=== PATIENT | male | born 1990 | race Hispanic/Latino ===

== ENCOUNTER 2017-08-13 19:00 | Inpatient (IN) | payer MEDICAID ==
[2017-08-13 19:56] LABS: BASO # 0.1 K/uL (0.0-0.2); BASO % 0.8 % (0.0-2.0); EOS # 0.2 K/uL (0.0-0.7); EOS % 1.8 % (0.0-4.0); HEMOGLOBIN 16.9 g/dL (12.0-18.0); LYMPH # 2.6 K/uL (1.0-4.3); LYMPH % 20.8 % (20.0-40.0); MEAN CELL VOLUME 91.9 fl (80.0-94.0); MEAN CORPUSCULAR HEMOGLOBIN 32.3 pg (27.0-31.0); MEAN CORPUSCULAR HGB CONC 35.1 g/dL (33.0-37.0); MONO # 0.8 K/uL (0.0-0.8); MONO % 6.1 % (0.0-10.0); NEUT # 8.9 K/uL (1.8-7.0); NEUT % 70.5 % (50.0-75.0); NRBC % 0.1 % (0.0-0.0); RBC 5.22 Mil/uL (4.40-5.90); RED CELL DISTRIBUTION WIDTH 12.8 % (11.5-14.5); WHITE BLOOD COUNT 12.6 K/uL (4.8-10.8)
[2017-08-13 20:00] LABS: URINE BACTERIA RARE (<OCC); URINE BILIRUBIN NEGATIVE (NEGATIVE); URINE BLOOD NEGATIVE (NEGATIVE); URINE CLARITY CLOUDY (Clear); URINE COLOR YELLOW (YELLOW); URINE GLUCOSE (UA) NEG (Normal); URINE LEUKOCYTE ESTERASE NEG Leu/uL (Negative); URINE PROTEIN NEGATIVE (NEGATIVE); URINE UROBILINOGEN 0.2-1.0 mg/dL (0.2-1.0)
[2017-08-13 20:06] LABS: INR 1.1 (0.9-1.2)
[2017-08-13 20:07] LABS: PARTIAL THROMBOPLASTIN TIME 32.4 Seconds (25.6-37.1)
[2017-08-13 20:10] LABS: ALB/GLOB RATIO 1.4 (1.0-2.1); ALBUMIN 4.2 g/dL (3.5-5.0); ALT/SGPT 44 U/L (21-72); AST/SGOT 26 U/L (17-59); BLOOD UREA NITROGEN 12 mg/dl (9-20); CALCIUM 9.4 mg/dL (8.4-10.2); GFR AFRICAN-AMERICAN > 60; GFR NON-AFRICAN AMERICAN > 60
[2017-08-13 20:24] LABS: BARBITURATES, UR NEGATIVE (NEGATIVE); BENZODIAZEPINES, UR NEGATIVE (NEGATIVE); OPIATES, UR NEGATIVE (NEGATIVE); PHENCYCLIDINE, UR NEGATIVE (NEGATIVE)
[2017-08-13] MEDS ORDERED: Alum-Mag Hydrox-Simethicone Susp (30 mL) PO STA (20:30)
[2017-08-13] MEDS ORDERED: Atrop/Hyos/Scop/PhenoB Elixir PO STA (20:30)
--- NOTE | 2017-08-13 20:48 | ED PDOC ---
HPI: Chest Pain Time Seen by Provider: 08/13/17 19:22 Chief Complaint (Nursing): Chest Pain History Per: Patient History/Exam Limitations: no limitations Onset/Duration Of Symptoms: Days Current Symptoms Are (Timing): Intermittent Episodes Context: Food Severity: Moderate Quality: Sharp, Tightness Associated Symptoms: Nausea. denies: Dyspnea, Diaphoresis, Syncope Exacerbating Factors: None Alleviating Factors: None Additional History Per: Family Additional Complaint(s): CC: Chest pain HPI: 27 y/o man w/ mild intermittent asthma presents to the ED w/ chest pain. Patient reports midsternal chest pain, going on for 1-2 months, no precipitating factors, sharp in nature, non-radiating, intermittent, no alleviated by anything, not worsened by anything, no meds taken. Patient reports associated dysphagia liquids and solids, "heartburn", low appetite, and unintentional weight loss. Patient also reports rash on his torso for the past 2 weeks that started in the middle of his chest and spread throughout the rest of his anterior torso but no rashes seen below abdomen, extremities, back, or face. Patient denies headaches, dizziness, SOB, nausea, vomiting, diarrhea, dysuria, or fever. Patient is visiting from [place] PMD: none PMH: mild intermittent asthma meds: albuterol inhaler allergies: penicillin (anaphylaxis) PSH: none Fam: father [place] age 50, mother [place] age 52, grandmother [place] age 46, grandfather [place] age 52 SOC: smokes 5 cigs/day for 8 years, drinks socially, smoked marijuana 1 week ago but denies using cocaine or other substances ROS; 12 points assessed and negative unless otherwise reported in HPI - Risk Factors PE Risk Factors: Neg: Extremity Immobilization/Fx, Decreased Mobilty /Activity, Recent Major Surgery, Recent Hospitalization, Active Cancer, Previous DVT, Previous PE, CHF, Venous Stasis, Estrogen Usage, Recent Major Trauma TAD Risk Factors: Neg: Hypertension, Connective Tissue Disease, Marfan's Syndrome, Burt- Danlos Syndrome, Aortic Valve Disease, Active , Tumer's Syndrome, First Degree Relative With TAD, Sudden Onset Of Pain, Migration Of Pain, New Neurologic Symptoms Past Medical History Vital Signs: Last Vital Signs Temp 98.8 F 08/13/17 19:12 Pulse 88 08/13/17 22:36 Resp 20 08/13/17 22:36 BP 153/90 H 08/13/17 22:36 Pulse Ox 97 08/13/17 21:04 - Family History Family History: States: [place] - Social History Current smoker - smoking cessation education provided: Yes (5 cigs/day for 8 years) Alcohol: > 2 Drinks/Day Drugs: Cannabis - Allergies Allergies/Adverse Reactions: Allergies Allergy/AdvReac Type Severity Reaction Status Date / Time Penicillins Allergy RASH Verified 08/13/17 19:08 GARCIA Risk Score for UA/NSTEMI - GARCIA Risk Score Age > 64: NO 3 or more CAD Risk Factors: NO Known CAD (Stenosis greater than 50%): NO Aspirin use in past 7 days: NO Severe Angina: NO EKG ST changes greater than 0.5mm: NO Positive Cardiac Marker: NO GARCIA Score: 0 Risk %: 5% Curb-65 Severity Score - CURB-65 Severity Score Confusion: No Bun >19mg/dl (>7mmol/L): No Respiratory Rate greater than/equal to 30: No Systolic BP <90 or Diastolic BP less than/equal 60mmHg: No Age >64: No Curb-65 Score: 0 Percentage 30-day mortality: 0.6% Wells Criteria for PE - Wells Criteria for Pulmonary Embolism Clinical Signs and Symptoms of DVT: No P.E is #1 Diagnosis, or Equally Likely: No Heart Rate >100: No Immobilization at least 3 days;Surgery previous 4 weeks: No Previous, objectively diagnosed PE or DVT: No Hemoptysis: No Malignancy w/treatment within 6 months, or palliative: No Total Score: 0 Review of Systems Constitutional: Positive for: Weight loss. Negative for: Fever Eyes: Negative for: Pain ENT: Negative for: Throat Pain, Throat Swelling Cardiovascular: Positive for: Chest Pain. Negative for: Palpitations, Edema, Light Headedness Respiratory: Negative for: Cough, Shortness of Breath, Hemoptysis, SOB with Exertion, Pleuritic Pain, Wheezing Gastrointestinal: Negative for: Nausea, Vomiting, Abdominal Pain, Diarrhea, Melena, Hematochezia Genitourinary Male: Negative for: Dysuria Skin: Positive for: Rash Neurological: Negative for: Weakness Physical Exam - Reviewed Nursing Documentation Reviewed: Yes Vital Signs Reviewed: Yes - Physical Exam Appears: Positive for: Non-toxic, No Acute Distress Head Exam: Positive for: ATRAUMATIC, NORMAL INSPECTION, NORMOCEPHALIC Skin: Positive for: Normal Color, Warm, Rash (multiple macular erythematic 2-3 cm rashes limited to anterior torso) Eye Exam: Positive for: Normal appearance ENT: Positive for: Normal ENT Inspection Neck: Positive for: Normal, Painless ROM, Supple Cardiovascular/Chest: Positive for: Regular Rate, Rhythm, Chest Non Tender. Negative for: Edema, JVD, Murmur, Bradycardia, Tachycardia Respiratory: Positive for: Normal Breath Sounds. Negative for: Decreased Breath Sounds, Accessory Muscle Use, Crackles, Rales, Rhonchi, Wheezing, Respiratory Distress Pulses-Carotid (L): 2+ Pulses-Carotid (R): 2+ Pulses-Radial (L): 2+ Pulses-Radial (R): 2+ Gastrointestinal/Abdominal: Positive for: Normal Exam, Bowel Sounds, Soft. Negative for: Tenderness, Mass, Distended, Guarding, Rebound Extremity: Positive for: Normal ROM. Negative for: Tenderness, Pedal Edema, Calf Tenderness Neurologic/Psych: Positive for: Alert, Oriented - Laboratory Results Result Diagrams: 08/13/17 19:53 08/13/17 19:53 - ECG O2 Sat by Pulse Oximetry: 97 Medical Decision Making Medical Decision Makin27 y/o man w/ mild intermittent asthma presents to the ED w/ chest pain. Most likely 2/2 GERD vs. r/o ACS vs. pancreatitis - CBC w/ diff: 12.6>16.9/48.0<254 - CMP: 141/3.9, 100/30, 12/0.9, glucose 133, AST 26, ALT 44, alk phos 66 - lipase: 1918 - troponin I: <0.0120 - PT: 12.0 - PTT: 32.4 - INR: 1.1 - UA: WNL - Urine drug screen: positive for cannabinoids - EKG: NSR, no ST elevation/depression, no prolonged QRS, QT, or [place], no inverted or peaked T waves - GI cocktail - re-evaluate - upon further interviewing, patient reports that prior to coming to [place] , he was drinking heavily while in [place] due to passing away of his - acute pancreatitis - IV LR bolus x3 - GI consult - gallbladder U/S: pending - admit to medicine Disposition - Clinical Impression Clinical Impression: Pancreatitis - Patient ED Disposition Is Patient to be Admitted: Yes Discussed With : Veto Barron Counseled Patient/Family Regarding: Studies Performed, Diagnosis - Disposition Disposition Time: 23:19 Condition: FAIR
[2017-08-13] MEDS ORDERED: Alum-Mag Hydrox-Simethicone Susp (30 mL) ONE (20:56)
[2017-08-13] MEDS ORDERED: Lactated Ringer's 1,000 ML IV STA ×3 (22:04→22:29)
[2017-08-13] MEDS ORDERED: Sodium Chloride 0.9% 1,000 ML IV STA ×2 (22:07→22:25)
--- NOTE | 2017-08-13 22:42 | CP.PCM.HP ---
History of Present Illness - History of Present Illness History of Present Illness: CC: chest/abdominal pain HPI: This is a 27 y/o male with asthma and with recent heavy EtOH use who comes to ED with chest/epigastric pain. Pain has been going on for ~1 month, but worsening. Accompanied by n/v yesterday (nb/nb). Pain is described as pressure like, non radiating. Seems to be somewhat worse with eating, but nothing alleviates. Patient also describes that for past few weeks foods have been ' sticking' in his throat, he has had reflux type symptoms, and anorexia with some weight loss. Patient also c/o rash on chest. Patient notes his some weeks ago, and recently has been drinking heavily on/off. Drinks up to a bottle of hard liquor a day followed by beer, but states he has not been drinking as much the last few days. ROS: 14 systems reviewed, negative other than HPI MHx: mild intermittent asthma SHx: none Allergies: PCN Medications: Per med rec Family Hx: CAD/TX in family at father [place] age 50, mother [place] age 52, grandmother [place] age 46, grandfather [place] age 52 Social Hx: Lives alone, smokes <1/2 PPD, recent heavy EtOH consumption, occasional MJ, no other drugs Present on Admission - Present on Admission Any Indicators Present on Admission: No Meds Allergies/Adverse Reactions: Allergies Allergy/AdvReac Type Severity Reaction Status Date / Time Penicillins Allergy RASH Verified 08/13/17 19:08 Physical Exam - Constitutional Appears: No Acute Distress - Head Exam Head Exam: ATRAUMATIC, NORMOCEPHALIC - Eye Exam Eye Exam: EOMI, PERRL - ENT Exam ENT Exam: Mucous Membranes Dry - Neck Exam Neck exam: Positive for: Full Rom - Respiratory Exam Respiratory Exam: Clear to Auscultation Bilateral, NORMAL BREATHING PATTERN - Cardiovascular Exam Cardiovascular Exam: REGULAR RHYTHM, +S1, +S2 Additional comments: rash on chest, macular, red - GI/Abdominal Exam GI & Abdominal Exam: Normal Bowel Sounds, Soft, Tenderness Additional comments: rash on chest - Extremities Exam Extremities exam: Positive for: full ROM, normal inspection - Neurological Exam Neurological exam: Alert, CN II-XII Intact, Oriented x3 - Psychiatric Exam Psychiatric exam: Normal Affect, Normal Mood - Skin Skin Exam: Dry, Warm Results - Vital Signs Recent Vital Signs: Last Vital Signs Temp 98.8 F 08/13/17 19:12 Pulse 88 08/13/17 19:38 Resp 20 08/13/17 19:38 BP 153/90 H 08/13/17 19:38 Pulse Ox 97 08/13/17 21:04 - Labs Result Diagrams: 08/13/17 19:53 08/13/17 19:53 Labs: Laboratory Results - last 24 hr 08/13/17 08/13/17 08/13/17 19:53 19:53 19:53 WBC 12.6 H RBC 5.22 Hgb 16.9 Hct 48.0 MCV 91.9 MCH 32.3 H MCHC 35.1 RDW 12.8 Plt Count 254 MPV 7.0 L Neut % (Auto) 70.5 Lymph % (Auto) 20.8 [place] % (Auto) 6.1 Eos % (Auto) 1.8 Baso % (Auto) 0.8 Neut # (Auto) 8.9 H Lymph # (Auto) 2.6 [place] # (Auto) 0.8 Eos # (Auto) 0.2 Baso # (Auto) 0.1 PT 12.0 INR 1.1 APTT 32.4 Sodium 141 Potassium 3.9 Chloride 100 Carbon Dioxide 30 Anion Gap 15 BUN 12 Creatinine 0.9 Est GFR ( Amer) > 60 Est GFR (Non-Af Amer) > 60 Random Glucose 133 H Calcium 9.4 Total Bilirubin 1.6 H AST 26 ALT 44 Alkaline Phosphatase 66 Troponin I < 0.0120 Total Protein 7.3 Albumin 4.2 Globulin 3.1 Albumin/Globulin Ratio 1.4 Lipase Urine Color Urine Clarity Urine pH Ur Specific [place] Urine Protein Urine Glucose (UA) Urine Ketones Urine Blood Urine Nitrate Urine Bilirubin Urine Urobilinogen Ur Leukocyte Esterase Urine RBC (Auto) Urine Microscopic WBC Urine Bacteria Urine Opiates Screen Urine Methadone Screen Ur Barbiturates Screen Ur Phencyclidine Scrn Ur Amphetamines Screen U Benzodiazepines Scrn U Oth Cocaine Metabols U Cannabinoids Screen 08/13/17 08/13/17 08/13/17 19:53 19:53 21:05 WBC RBC Hgb Hct MCV MCH MCHC RDW Plt Count MPV Neut % (Auto) Lymph % (Auto) [place] % (Auto) Eos % (Auto) Baso % (Auto) Neut # (Auto) Lymph # (Auto) [place] # (Auto) Eos # (Auto) Baso # (Auto) PT INR APTT Sodium Potassium Chloride Carbon Dioxide Anion Gap BUN Creatinine Est GFR ( Amer) Est GFR (Non-Af Amer) Random Glucose Calcium Total Bilirubin AST ALT Alkaline Phosphatase Troponin I Total Protein Albumin Globulin Albumin/Globulin Ratio Lipase 1918 H Urine Color Yellow Urine Clarity Cloudy Urine pH 6.0 Ur Specific [place] 1.028 Urine Protein Negative Urine Glucose (UA) Neg Urine Ketones Negative Urine Blood Negative Urine Nitrate Negative Urine Bilirubin Negative Urine Urobilinogen 0.2-1.0 Ur Leukocyte Esterase Neg Urine RBC (Auto) 3 Urine Microscopic WBC 2 Urine Bacteria Rare Urine Opiates Screen Negative Urine Methadone Screen Negative Ur Barbiturates Screen Negative Ur Phencyclidine Scrn Negative Ur Amphetamines Screen Negative U Benzodiazepines Scrn Negative U Oth Cocaine Metabols Negative U Cannabinoids Screen Positive H - EKG Data EKG Interpreted by: Myself EKG shows normal: Sinus rhythm Rate: Normal Assessment & Plan (1) Pancreatitis Assessment and Plan: 27 y/o male with CP/abd pain and likely pancreatitis; BISAP score appears to be 0. However, some concern given report of dysphagia and weight loss as well-- scarring/spasm due to GERD, stricture, etc. -NPO, IVF -Zofran for nausea IV -Morphine for pain IV per pain scale -Repeat Lipase/CMP/BMP in AM -GI Consult with Jarrett in AM -SCDs for DVT PPx Status: Acute (2) Epigastric pain Status: Acute (3) DVT prophylaxis Status: Acute
[2017-08-13] MEDS ORDERED: Lactated Ringer's 1,000 ML IV SCH ×2 (22:45)
--- NOTE | 2017-08-14 01:00 | CP.PCM.CON ---
History of Present Illness - History of Present Illness History of Present Illness: 27 yo male c/o chest pain and was found to have very elevated lipase level. Patient has been drinking alcohol regularly for approximately one year after his had . He also smokes cigarettes. Has had several ER visits with similar complaints and no cardiac problems were found. Review of Systems - Constitutional Constitutional: absent: Chills - EENT Eyes: absent: Change in Vision Ears: absent: Decreased Hearing Nose/Mouth/Throat: absent: Epistaxis - Cardiovascular Cardiovascular: Chest Pain - Respiratory Respiratory: absent: Dyspnea - Gastrointestinal Gastrointestinal: absent: Abdominal Pain Past Patient History - Past Social History Smoking Status: Heavy Smoker > 10 Cigarettes Daily - MUSCULOSKELETAL/RHEUMATOLOGICAL Hx Falls: No - PSYCHIATRIC Hx Substance Use: Yes (marijuana a week ago) Meds Allergies/Adverse Reactions: Allergies Allergy/AdvReac Type Severity Reaction Status Date / Time Penicillins Allergy RASH Verified 08/13/17 19:08 - Medications Medications: Current Medications Lactated Ringer's (Lactated Ringer's) 1,000 mls @ 100 mls/hr IV .Q10H [facility] Stop: 08/14/17 18:44 Morphine Sulfate (Morphine) 1 mg IVP Q4 PRN PRN Reason: Pain, Mild (1-3) Morphine Sulfate (Morphine) 2 mg IVP Q4 PRN PRN Reason: Pain, moderate (4-7) Ondansetron HCl (Zofran Inj) 4 mg IVP Q6 PRN PRN Reason: Nausea/Vomiting Pantoprazole Sodium (Protonix Ec Tab) 40 mg PO BID LO Physical Exam - Head Exam Head Exam: ATRAUMATIC - Eye Exam Eye Exam: EOMI Pupil Exam: PERRL - Respiratory Exam Respiratory Exam: NORMAL BREATHING PATTERN - Cardiovascular Exam Cardiovascular Exam: REGULAR RHYTHM, +S1, +S2 - GI/Abdominal Exam GI & Abdominal Exam: Normal Bowel Sounds, Soft. absent: Tenderness Results - Vital Signs Recent Vital Signs: Last Vital Signs Temp 97.3 F L 08/13/17 23:50 Pulse 72 08/13/17 23:50 Resp 20 08/13/17 23:50 BP 125/79 08/13/17 23:50 Pulse Ox 96 08/13/17 23:50 - Labs Result Diagrams: 08/13/17 19:53 08/13/17 19:53 Labs: Laboratory Results - last 24 hr 08/13/17 08/13/17 08/13/17 19:53 19:53 19:53 WBC 12.6 H RBC 5.22 Hgb 16.9 Hct 48.0 MCV 91.9 MCH 32.3 H MCHC 35.1 RDW 12.8 Plt Count 254 MPV 7.0 L Neut % (Auto) 70.5 Lymph % (Auto) 20.8 [place] % (Auto) 6.1 Eos % (Auto) 1.8 Baso % (Auto) 0.8 Neut # (Auto) 8.9 H Lymph # (Auto) 2.6 [place] # (Auto) 0.8 Eos # (Auto) 0.2 Baso # (Auto) 0.1 PT 12.0 INR 1.1 APTT 32.4 Sodium 141 Potassium 3.9 Chloride 100 Carbon Dioxide 30 Anion Gap 15 BUN 12 Creatinine 0.9 Est GFR ( Amer) > 60 Est GFR (Non-Af Amer) > 60 Random Glucose 133 H Calcium 9.4 Total Bilirubin 1.6 H AST 26 ALT 44 Alkaline Phosphatase 66 Troponin I < 0.0120 Total Protein 7.3 Albumin 4.2 Globulin 3.1 Albumin/Globulin Ratio 1.4 Lipase Urine Color Urine Clarity Urine pH Ur Specific [place] Urine Protein Urine Glucose (UA) Urine Ketones Urine Blood Urine Nitrate Urine Bilirubin Urine Urobilinogen Ur Leukocyte Esterase Urine RBC (Auto) Urine Microscopic WBC Urine Bacteria Urine Opiates Screen Urine Methadone Screen Ur Barbiturates Screen Ur Phencyclidine Scrn Ur Amphetamines Screen U Benzodiazepines Scrn U Oth Cocaine Metabols U Cannabinoids Screen 08/13/17 08/13/17 08/13/17 19:53 19:53 21:05 WBC RBC Hgb Hct MCV MCH MCHC RDW Plt Count MPV Neut % (Auto) Lymph % (Auto) [place] % (Auto) Eos % (Auto) Baso % (Auto) Neut # (Auto) Lymph # (Auto) [place] # (Auto) Eos # (Auto) Baso # (Auto) PT INR APTT Sodium Potassium Chloride Carbon Dioxide Anion Gap BUN Creatinine Est GFR ( Amer) Est GFR (Non-Af Amer) Random Glucose Calcium Total Bilirubin AST ALT Alkaline Phosphatase Troponin I Total Protein Albumin Globulin Albumin/Globulin Ratio Lipase 1918 H Urine Color Yellow Urine Clarity Cloudy Urine pH 6.0 Ur Specific [place] 1.028 Urine Protein Negative Urine Glucose (UA) Neg Urine Ketones Negative Urine Blood Negative Urine Nitrate Negative Urine Bilirubin Negative Urine Urobilinogen 0.2-1.0 Ur Leukocyte Esterase Neg Urine RBC (Auto) 3 Urine Microscopic WBC 2 Urine Bacteria Rare Urine Opiates Screen Negative Urine Methadone Screen Negative Ur Barbiturates Screen Negative Ur Phencyclidine Scrn Negative Ur Amphetamines Screen Negative U Benzodiazepines Scrn Negative U Oth Cocaine Metabols Negative U Cannabinoids Screen Positive H Assessment & Plan (1) Elevated lipase Assessment and Plan: Markedly elevated lipase. Sono of abdomen still pending. Since patient has no abdominal pain will give liquid diet and may advance as tolerated. Upper endoscopy Tuesday to evaluate chest pain and possible esophagitis or esophageal lesion. Status: Acute
[2017-08-14 06:54] LABS: HEMOGLOBIN 15.2 g/dL (12.0-18.0); MEAN CELL VOLUME 91.9 fl (80.0-94.0); MEAN CORPUSCULAR HEMOGLOBIN 32.4 pg (27.0-31.0); MEAN CORPUSCULAR HGB CONC 35.2 g/dL (33.0-37.0); RBC 4.7 Mil/uL (4.40-5.90); RED CELL DISTRIBUTION WIDTH 12.7 % (11.5-14.5); WHITE BLOOD COUNT 12.2 K/uL (4.8-10.8)
[2017-08-14 07:12] LABS: ALB/GLOB RATIO 1.4 (1.0-2.1); ALBUMIN 3.7 g/dL (3.5-5.0); ALT/SGPT 35 U/L (21-72); AST/SGOT 23 U/L (17-59); BLOOD UREA NITROGEN 10 mg/dl (9-20); CALCIUM 8.7 mg/dL (8.4-10.2); GFR AFRICAN-AMERICAN > 60; GFR NON-AFRICAN AMERICAN > 60; LIPASE 842 U/L (23-300)
[2017-08-14] MEDS: Pantoprazole 40 mg EC Tab PO SCH ×2 (08:16→15:59)
--- NOTE | 2017-08-14 09:26 | CP.PCM.PN ---
Subjective - Date & Time of Evaluation Date of Evaluation: 08/14/17 Time of Evaluation: 09:26 - Subjective Subjective: feeling improved +bm tolerated liquids well this am for EGD in am hd stable nad Objective - Vital Signs/Intake and Output Vital Signs (last 24 hours): Temp Pulse Resp BP Pulse Ox 97.6 F 71 19 113/64 97 08/14/17 07:38 08/14/17 07:38 08/14/17 07:38 08/14/17 07:38 08/14/17 07:38 Vitals Reviewed GEN: WDWN, alert, cooperative HEENT: NCAT, PERRL, EOMI HEART: RRR, +S1S2, NO MRG LUNG: CTAB, NO WRR ABD: soft, NT, ND, No HSM, No masses EXT: normal pedal pulses, normal capillary refill NEURO: awake, alert, no focal deficits SKIN: warm, dry PSYCH: normal mood, normal affect - Medications Medications: Current Medications Morphine Sulfate (Morphine) 1 mg IVP Q4 PRN PRN Reason: Pain, Mild (1-3) Morphine Sulfate (Morphine) 2 mg IVP Q4 PRN PRN Reason: Pain, moderate (4-7) Ondansetron HCl (Zofran Inj) 4 mg IVP Q6 PRN PRN Reason: Nausea/Vomiting Pantoprazole Sodium (Protonix Ec Tab) 40 mg PO BID LO Last Admin: 08/14/17 08:16 Dose: 40 mg - Labs Labs: 08/14/17 05:25 08/14/17 05:25 PT 12.0 Seconds (9.8-13.1) 08/13/17 19:53 INR 1.1 (0.9-1.2) 08/13/17 19:53 APTT 32.4 Seconds (25.6-37.1) 08/13/17 19:53 Assessment and Plan - Assessment and Plan (Free Text) Plan: 27 y/o male with asthma and with recent heavy EtOH use who comes to ED with chest/epigastric pain. Pain has been going on for ~1 month, but worsening. Accompanied by n/v yesterday (nb/nb). Pain is described as pressure like, non radiating. Seems to be somewhat worse with eating, but nothing alleviates. Patient also describes that for past few weeks foods have been 'sticking' in his throat, he has had reflux type symptoms, and anorexia with some weight loss. Patient also c/o rash on chest. Patient notes his some weeks ago, and recently has been drinking heavily on/off. Drinks up to a bottle of hard liquor a day followed by beer, but states he has not been drinking as much the last few days. Pancreatitis -Advanced to liquid diet without issue this morning -Zofran for nausea IV -Morphine for pain IV per pain scale -Repeat Labs in AM -GI Consult with Jarrett appreciated Dysphagia -Consult with Dr. Farias -For EGD tomorrow AM EtOH use -counseled on cessation -recommended grief counseling -SCDs for DVT PPx
--- NOTE | 2017-08-14 11:00 | US ---
HISTORY: Pancreatitis COMPARISON: None. TECHNIQUE: Sonographic evaluation of the right upper quadrant of the abdomen. FINDINGS: LIVER: Measures 16.2 cm in length. Normal echogenicity of the liver parenchyma. No mass. No intrahepatic bile duct dilatation. GALLBLADDER: Unremarkable. No gallstones. No sonographic Lynne sign COMMON BILE DUCT: Measures 3.7 mm. No stones. No dilatation. PANCREAS: Pancreas is not seen due to body habitus and bowel gas. RIGHT KIDNEY: Measures 10.6 x 5.3 x 4.1 cm in length. Normal echogenicity. No calculus, mass, or hydronephrosis. AORTA: No aneurysmal dilatation. IVC: Unremarkable. OTHER FINDINGS: None . IMPRESSION: Limited evaluation of the pancreas due to body habitus and bowel gas. No evidence of cholelithiasis. Consider followup CT scan if further evaluation is required Preliminary report provided by overnight radiology service
--- NOTE | 2017-08-14 12:43 | CARD ---
APPROVED REPORT EKG Measurement Heart [id number] <Conclusion> Normal sinus rhythm with sinus arrhythmia Normal ECG
--- NOTE | 2017-08-14 19:20 | CP.PCM.PN ---
Subjective - Date & Time of Evaluation Date of Evaluation: 08/14/17 Time of Evaluation: 19:17 - Subjective Subjective: C/o substernal painthough improved since yesterday Objective - Vital Signs/Intake and Output Vital Signs (last 24 hours): Temp Pulse Resp BP Pulse Ox 97.5 F L 60 20 113/71 97 08/14/17 16:57 08/14/17 16:57 08/14/17 16:57 08/14/17 16:57 08/14/17 16:57 Intake and Output: 08/14/17 08/15/17 18:59 06:59 Intake Total 1200 Balance 1200 - Medications Medications: Current Medications Morphine Sulfate (Morphine) 1 mg IVP Q4 PRN PRN Reason: Pain, Mild (1-3) Morphine Sulfate (Morphine) 2 mg IVP Q4 PRN PRN Reason: Pain, moderate (4-7) Ondansetron HCl (Zofran Inj) 4 mg IVP Q6 PRN PRN Reason: Nausea/Vomiting Pantoprazole Sodium (Protonix Ec Tab) 40 mg PO BID LO Last Admin: 08/14/17 15:59 Dose: 40 mg - Labs Labs: 08/14/17 05:25 08/14/17 05:25 PT 12.0 Seconds (9.8-13.1) 08/13/17 19:53 INR 1.1 (0.9-1.2) 08/13/17 19:53 APTT 32.4 Seconds (25.6-37.1) 08/13/17 19:53 - Head Exam Head Exam: ATRAUMATIC - Eye Exam Eye Exam: Normal appearance, PERRL Pupil Exam: NORMAL ACCOMODATION - ENT Exam ENT Exam: Mucous Membranes Moist - Neck Exam Neck Exam: Full ROM - Respiratory Exam Respiratory Exam: Clear to Ausculation Bilateral - Cardiovascular Exam Cardiovascular Exam: REGULAR RHYTHM, +S1, +S2 - GI/Abdominal Exam GI & Abdominal Exam: Soft. absent: Tenderness Assessment and Plan (1) Elevated lipase Assessment & Plan: Lipase half the value of yesterday. Abdominal sono negative though pancreas not well seen. Diet advanced to bland soft food. Upper endoscopy tomorrow to evaluate esophagus. Status: Acute
[2017-08-15 07:01] LABS: ALB/GLOB RATIO 1.4 (1.0-2.1); ALBUMIN 3.8 g/dL (3.5-5.0); ALT/SGPT 41 U/L (21-72); AST/SGOT 25 U/L (17-59); BLOOD UREA NITROGEN 9 mg/dl (9-20); CALCIUM 9.1 mg/dL (8.4-10.2); GFR AFRICAN-AMERICAN > 60; GFR NON-AFRICAN AMERICAN > 60
[2017-08-15 07:46] LABS: BASO % 0.4 % (0.0-2.0); EOS # 0.2 K/uL (0.0-0.7); EOS % 1.7 % (0.0-4.0); HEMOGLOBIN 15.7 g/dL (12.0-18.0); LYMPH # 3.2 K/uL (1.0-4.3); LYMPH % 26.9 % (20.0-40.0); MEAN CELL VOLUME 90.9 fl (80.0-94.0); MEAN CORPUSCULAR HEMOGLOBIN 32.1 pg (27.0-31.0); MEAN CORPUSCULAR HGB CONC 35.3 g/dL (33.0-37.0); MEAN PLATELET VOLUME 7.4 fl (7.2-11.7); MONO # 0.9 K/uL (0.0-0.8); MONO % 7.6 % (0.0-10.0); NEUT # 7.6 K/uL (1.8-7.0); NEUT % 63.4 % (50.0-75.0); NRBC % 0.3 % (0.0-0.0); RBC 4.88 Mil/uL (4.40-5.90); RED CELL DISTRIBUTION WIDTH 12.9 % (11.5-14.5)
[2017-08-15] MEDS: Pantoprazole 40 mg EC Tab PO SCH (08:54)
[2017-08-15] MEDS ORDERED: Lactated Ringer's 500 ML IV ONE (11:40)
[2017-08-15] MEDS ORDERED: Propofol 10 mg/ml Inj (20 ML) ONE (12:24)
[2017-08-15] MEDS ORDERED: Midazolam 2 MG/2 ML VIAL ONE (12:24)
[2017-08-15 12:41] VITALS: RESP 17; TEMP 97.2
--- NOTE | 2017-08-15 12:56 | CP.PCM.DIS ---
Provider - Provider Date of Admission: 08/13/17 22:05 Attending physician: Melchor Guerrero MD Primary care physician: none Consults: gastroenterology consult Time Spent in preparation of Discharge (in minutes): 15 Hospital Course - Lab Results Lab Results: Most Recent Lab Values WBC 12.0 K/uL (4.8-10.8) H 08/15/17 06:15 RBC 4.88 Mil/uL (4.40-5.90) 08/15/17 06:15 Hgb 15.7 g/dL (12.0-18.0) 08/15/17 06:15 Hct 44.3 % (35.0-51.0) 08/15/17 06:15 MCV 90.9 fl (80.0-94.0) 08/15/17 06:15 MCH 32.1 pg (27.0-31.0) H 08/15/17 06:15 MCHC 35.3 g/dL (33.0-37.0) 08/15/17 06:15 RDW 12.9 % (11.5-14.5) 08/15/17 06:15 Plt Count 236 K/uL (130-400) 08/15/17 06:15 MPV 7.4 fl (7.2-11.7) 08/15/17 06:15 Neut % (Auto) 63.4 % (50.0-75.0) 08/15/17 06:15 Lymph % (Auto) 26.9 % (20.0-40.0) 08/15/17 06:15 [place] % (Auto) 7.6 % (0.0-10.0) 08/15/17 06:15 Eos % (Auto) 1.7 % (0.0-4.0) 08/15/17 06:15 Baso % (Auto) 0.4 % (0.0-2.0) 08/15/17 06:15 Neut # (Auto) 7.6 K/uL (1.8-7.0) H 08/15/17 06:15 Lymph # (Auto) 3.2 K/uL (1.0-4.3) 08/15/17 06:15 [place] # (Auto) 0.9 K/uL (0.0-0.8) H 08/15/17 06:15 Eos # (Auto) 0.2 K/uL (0.0-0.7) 08/15/17 06:15 Baso # (Auto) 0.0 K/uL (0.0-0.2) 08/15/17 06:15 PT 12.0 Seconds (9.8-13.1) 08/13/17 19:53 INR 1.1 (0.9-1.2) 08/13/17 19:53 APTT 32.4 Seconds (25.6-37.1) 08/13/17 19:53 Sodium 144 mmol/l (132-148) 08/15/17 06:15 Potassium 4.3 MMOL/L (3.6-5.0) 08/15/17 06:15 Chloride 100 mmol/L (98-107) 08/15/17 06:15 Carbon Dioxide 32 mmol/L (22-30) H 08/15/17 06:15 Anion Gap 16 (10-20) 08/15/17 06:15 BUN 9 mg/dl (9-20) 08/15/17 06:15 Creatinine 1.0 mg/dl (0.8-1.5) 08/15/17 06:15 Est GFR ( Amer) > 60 08/15/17 06:15 Est GFR (Non-Af Amer) > 60 08/15/17 06:15 Random Glucose 86 mg/dL (75-110) 08/15/17 06:15 Calcium 9.1 mg/dL (8.4-10.2) 08/15/17 06:15 Total Bilirubin 1.6 mg/dl (0.2-1.3) H 08/15/17 06:15 AST 25 U/L (17-59) 08/15/17 06:15 ALT 41 U/L (21-72) 08/15/17 06:15 Alkaline Phosphatase 60 U/L (38-126) 08/15/17 06:15 Troponin I < 0.0120 ng/mL (0.00-0.120) 08/13/17 19:53 Total Protein 6.6 G/DL (6.3-8.2) 08/15/17 06:15 Albumin 3.8 g/dL (3.5-5.0) 08/15/17 06:15 Globulin 2.8 gm/dL (2.2-3.9) 08/15/17 06:15 Albumin/Globulin Ratio 1.4 (1.0-2.1) 08/15/17 06:15 Lipase 842 U/L (23-300) H 08/14/17 05:25 Urine Color Yellow (YELLOW) 08/13/17 19:53 Urine Clarity Cloudy (Clear) 08/13/17 19:53 Urine pH 6.0 (5.0-8.0) 08/13/17 19:53 Ur Specific Flanagan 1.028 (1.003-1.030) 08/13/17 19:53 Urine Protein Negative mg/dL (NEGATIVE) 08/13/17 19:53 Urine Glucose (UA) Neg mg/dL (Normal) 08/13/17 19:53 Urine Ketones Negative mg/dL (NEGATIVE) 08/13/17 19:53 Urine Blood Negative (NEGATIVE) 08/13/17 19:53 Urine Nitrate Negative (NEGATIVE) 08/13/17 19:53 Urine Bilirubin Negative (NEGATIVE) 08/13/17 19:53 Urine Urobilinogen 0.2-1.0 mg/dL (0.2-1.0) 08/13/17 19:53 Ur Leukocyte Esterase Neg Linette/uL (Negative) 08/13/17 19:53 Urine RBC (Auto) 3 /hpf (0-3) 08/13/17 19:53 Urine Microscopic WBC 2 /hpf (0-5) 08/13/17 19:53 Urine Bacteria Rare (<OCC) 08/13/17 19:53 Urine Opiates Screen Negative (NEGATIVE) 08/13/17 19:53 Urine Methadone Screen Negative (NEGATIVE) 08/13/17 19:53 Ur Barbiturates Screen Negative (NEGATIVE) 08/13/17 19:53 Ur Phencyclidine Scrn Negative (NEGATIVE) 08/13/17 19:53 Ur Amphetamines Screen Negative (NEGATIVE) 08/13/17 19:53 U Benzodiazepines Scrn Negative (NEGATIVE) 08/13/17 19:53 U Oth Cocaine Metabols Negative (NEGATIVE) 08/13/17 19:53 U Cannabinoids Screen Positive (NEGATIVE) H 08/13/17 19:53 - Hospital Course Hospital Course: 27 y/o male with PMH asthma and with recent heavy EtOH use came to ED with chest/epigastric pain. Pain has been going on for ~1 month, but worsening lately , accompanied by n/v yesterday (nb/nb). Pain is described as pressure like, non radiating. Seems to be somewhat worse with eating, but nothing alleviates. Patient also describes that for past few weeks foods have been ' sticking' in his throat, he has had reflux type symptoms, and anorexia with some weight loss. Patient also c/o rash on chest. Patient notes his some weeks ago, and recently has been drinking heavily on/off. Drinks up to a bottle of hard liquor a day followed by beer, but states he has not been drinking as much the last few days. Abdominal US showed no acute pathology Lipase was elevated to 1918 . He was admitted to med/surg with diagnosis of acute pancreatitis and dysphagia. Initially kept NPO , started on IVF and protonix 40 mg IV BID. GI was consulted .Patient clinically improved and lipase trended down to 847 , abdominal pain resolved . He underwent EGD that showed normal stomach and duodenum , mucosal nodules on esophagus that were biopsied . Post EGD tolerated soft diet well . Cleared by GI for discharge. Will d/cv patient on Protonix PO BID and follow up with Dr. Farias for EGD biopsy results. Counselled patient on ETOH abuse he is hemodynamically stable, afebrile, pain free, passing flatus, tolerating PO intake with no withdrawal symptoms. 1.Acute Pancreatitis most likely ETOH induced improved , lipase trended down from 1918---847, pain free , tolerating diet counselled on ETOH abuse no signs of withdrawals 2.Dysphagia unclear etiology probably secondary to esophagitis and gastritis Started on Protonix PO and will be discharged on PO BID as well GI consulted and underwent EGD that showed mucosal nodules in esophagus follow up with Dr. Farias in 2 weeks for biopsy results 3.EtOH use counseled on cessation recommended grief counseling denies any suicidal thoughts or ideation , denies any hallucinations no signs of withdrawal 4. Leukocystosis WBC 12 K most likely reactive 5. Cannabis use Discharge Exam - Head Exam Head Exam: ATRAUMATIC, NORMOCEPHALIC - Eye Exam Eye Exam: EOMI, Normal appearance, PERRL Pupil Exam: NORMAL ACCOMODATION - ENT Exam ENT Exam: Mucous Membranes Moist, Normal Exam - Neck Exam Neck exam: Full Rom, Normal Inspection - Respiratory Exam Respiratory Exam: Clear to PA & Lateral, NORMAL BREATHING PATTERN. absent: Rales, Rhonchi, Wheezes - Cardiovascular Exam Cardiovascular Exam: REGULAR RHYTHM, RRR, +S1, +S2. absent: JVD - GI/Abdominal Exam GI & Abdominal Exam: Normal Bowel Sounds, Soft. absent: Distended, Guarding, Rebound, Tenderness - Rectal Exam Rectal Exam: Deferred - Extremities Exam Extremities exam: normal capillary refill, normal inspection, pedal pulses present - Back Exam Back exam: NORMAL INSPECTION - Neurological Exam Neurological exam: Alert, CN II-XII Intact, Oriented x3, Reflexes Normal - Skin Skin Exam: Dry, Warm Discharge Plan - Discharge Medications Prescriptions: Pantoprazole Sodium [Protonix] 40 mg PO BID #60 tablet.dr - Follow Up Plan Condition: STABLE Disposition: HOME/ ROUTINE Patient education suggested?: Yes Instructions: Pancreatitis (DC), Alcohol Abuse and Alcoholism (DC) Referrals: Bob Farias MD [Staff Provider] -
[2017-08-15 12:58] VITALS: BP 112/62; PULSE 70; O2SAT 97
--- NOTE | 2017-08-16 08:32 | RAD ---
HISTORY: Acute pancreatitis COMPARISON: No prior. FINDINGS: LUNGS: No active pulmonary disease. PLEURA: No significant pleural effusion identified, no pneumothorax apparent. CARDIOVASCULAR: Normal. OSSEOUS STRUCTURES: No significant abnormalities. VISUALIZED UPPER ABDOMEN: Normal. OTHER FINDINGS: None. IMPRESSION: No active disease.
== END 2017-08-15 15:21 | disposition home or self-care (01) | DRG 440 ==
LOC: H.ER 19:00 → H.ERHOLD 22:05 → H.MEDSURG1 23:30
PROVIDERS: ADMIT Internal Medicine; ATTEND Internal Medicine
PROC: 0DB48ZX Excision of Esophagogastric Junction, Via Natural or Artificial Opening Endoscopic, Diagnostic (ICD-10-PCS; principal; 2017-08-15 14:45)
DX: K85.20 Alcohol induced acute pancreatitis without necrosis or infection (principal); R13.10 Dysphagia, unspecified; Z82.49 Family history of ischemic heart disease and other diseases of the circulatory system; R63.0 Anorexia; R21 Rash and other nonspecific skin eruption; R63.4 Abnormal weight loss; R74.8 Abnormal levels of other serum enzymes; F10.10 Alcohol abuse, uncomplicated; F12.90 Cannabis use, unspecified, uncomplicated; F17.210 Nicotine dependence, cigarettes, uncomplicated; J45.20 Mild intermittent asthma, uncomplicated; K21.0 Gastro-esophageal reflux disease with esophagitis; K29.70 Gastritis, unspecified, without bleeding

== ENCOUNTER 2017-08-20 09:45 | Emergency (ER) | payer SELFPAY ==
[2017-08-20 10:00] VITALS: BP 129/77; PULSE 102; RESP 20; TEMP 97.8; O2SAT 95
[2017-08-20] MEDS ORDERED: Alum-Mag Hydrox-Simethicone Susp (30 mL) PO STA (10:32)
[2017-08-20] MEDS ORDERED: Sodium Chloride 0.9% 1,000 ML IV STA (10:35)
--- NOTE | 2017-08-20 10:35 | ED PDOC ---
HPI: Chest Pain Time Seen by Provider: 08/20/17 10:32 Chief Complaint (Nursing): Chest Pain Chief Complaint (Provider): cp History Per: Patient (27 y/o male h/o alcohol abuse h/o pancreatitis with daily etoh intake here for chest pain mid sternal ongoing described as tightness. Notes sore throat daily in morning. Denies any cough/fevers/chills/vomiting. Has been admitted last week for evaluation of chest pain and told he had pancreatitis. Has f/u with Dr. man for biopsy results wnl. Patient concerned about chest pain. Family h/o [place] mother age 53.) Past Medical History Reviewed: Historical Data, Nursing Documentation, Vital Signs Vital Signs: Last Vital Signs Temp 97.8 F 08/20/17 09:58 Pulse 102 H 08/20/17 09:58 Resp 20 08/20/17 09:58 BP 129/77 08/20/17 09:58 Pulse Ox 95 08/20/17 10:35 - Medical History PMH: Asthma Denies: Chronic Kidney Disease - Family History Family History: States: [place] - Immunization History Hx Tetanus Toxoid Vaccination: No Hx Influenza Vaccination: No Hx Pneumococcal Vaccination: No - Home Medications Home Medications: Ambulatory Orders Medication Instructions Recorded Pantoprazole Sodium [Protonix] 40 mg PO BID #60 tablet. 08/15/17 Ranitidine HCl [Zantac] 150 mg PO BID #14 tablet 08/20/17 - Allergies Allergies/Adverse Reactions: Allergies Allergy/AdvReac Type Severity Reaction Status Date / Time Penicillins Allergy RASH Verified 08/13/17 19:08 Review of Systems ROS Statement: Except As Marked, All Systems Reviewed And Found Negative Physical Exam - Reviewed Nursing Documentation Reviewed: Yes Vital Signs Reviewed: Yes - Physical Exam Appears: Positive for: Well, Non-toxic, No Acute Distress Head Exam: Positive for: ATRAUMATIC, NORMAL INSPECTION, NORMOCEPHALIC Skin: Positive for: Normal Color, Warm, DRY Eye Exam: Positive for: EOMI, Normal appearance, PERRL ENT: Positive for: Normal ENT Inspection Neck: Positive for: Normal, Painless ROM Cardiovascular/Chest: Positive for: Regular Rate, Rhythm Respiratory: Positive for: CNT, Normal Breath Sounds Gastrointestinal/Abdominal: Positive for: Normal Exam, Bowel Sounds, Soft Back: Positive for: Normal Inspection Extremity: Positive for: Normal ROM Neurologic/Psych: Positive for: Alert, Oriented - Laboratory Results Result Diagrams: 08/20/17 10:38 08/20/17 10:38 - ECG O2 Sat by Pulse Oximetry: 95 - Progress ED Course And Treament: EKG: Sinus tachycardia 106bpm; no ectopy; no acute changes noted Patient refused maalox. cxr: nad Patient states he is unable to afford protonix. protonix 40 mg x 1 dose in ED Disposition - Clinical Impression Clinical Impression: Chest pain, Esophagitis - Patient ED Disposition Is Patient to be Admitted: No - Disposition Referrals: Bob Man MD [Staff Provider] - Disposition: Routine/Home Disposition Time: 12:37 Condition: FAIR Prescriptions: Ranitidine HCl [Zantac] 150 mg PO BID #14 tablet Instructions: Chest Pain, Ulcer and Gastritis Diet, Acid Reflux ( Gastroesophageal Reflux Disease) in Adults Forms: [facility] (Maori)
[2017-08-20 11:03] LABS: BASO % 0.3 % (0.0-2.0); EOS # 0.1 K/uL (0.0-0.7); HEMOGLOBIN 16.3 g/dL (12.0-18.0); LYMPH # 3.6 K/uL (1.0-4.3); LYMPH % 26.3 % (20.0-40.0); MEAN CELL VOLUME 90.8 fl (80.0-94.0); MEAN CORPUSCULAR HEMOGLOBIN 31.9 pg (27.0-31.0); MEAN CORPUSCULAR HGB CONC 35.1 g/dL (33.0-37.0); MEAN PLATELET VOLUME 7.2 fl (7.2-11.7); MONO # 1.2 K/uL (0.0-0.8); MONO % 8.6 % (0.0-10.0); NEUT # 8.8 K/uL (1.8-7.0); NEUT % 63.8 % (50.0-75.0); NRBC % 0.1 % (0.0-0.0); RBC 5.1 Mil/uL (4.40-5.90); RED CELL DISTRIBUTION WIDTH 12.7 % (11.5-14.5); WHITE BLOOD COUNT 13.9 K/uL (4.8-10.8)
[2017-08-20 11:12] LABS: ALB/GLOB RATIO 1.6 (1.0-2.1); ALBUMIN 4.4 g/dL (3.5-5.0); ALT/SGPT 45 U/L (21-72); AST/SGOT 29 U/L (17-59); BLOOD UREA NITROGEN 11 mg/dl (9-20); GFR AFRICAN-AMERICAN > 60; GFR NON-AFRICAN AMERICAN > 60; LIPASE 363 U/L (23-300)
--- NOTE | 2017-08-20 11:18 | RAD ---
HISTORY: cp COMPARISON: Chest radiograph dated 08/14/2017 TECHNIQUE: Chest PA and lateral FINDINGS: LUNGS: No active pulmonary disease. PLEURA: No significant pleural effusion identified. No pneumothorax apparent. CARDIOVASCULAR: Normal. OSSEOUS STRUCTURES: No significant abnormalities. VISUALIZED UPPER ABDOMEN: Normal. OTHER FINDINGS: None. IMPRESSION: No active disease.
[2017-08-20] MEDS ORDERED: Pantoprazole 40 mg EC Tab PO STA (12:35)
[2017-08-20] MEDS ORDERED: Pantoprazole 40 mg EC Tab PO ONE (12:41)
--- NOTE | 2017-08-21 00:13 | CARD ---
APPROVED REPORT EKG Measurement Heart [id number] <Conclusion> Sinus tachycardia Nonspecific intraventricular conduction delay Borderline ECG
== END 2017-08-20 12:48 | disposition home or self-care (01) ==
LOC: H.ER 09:45
DX: R07.89 Other chest pain (principal); K20.9 Esophagitis, unspecified; Z88.0 Allergy status to penicillin

== ENCOUNTER 2017-10-19 04:20 | Emergency (ER) | payer MEDICAID ==
[2017-10-19 04:44] VITALS: BP 124/77; PULSE 86; RESP 16; TEMP 98.6; O2SAT 100
--- NOTE | 2017-10-19 04:56 | ED PDOC ---
HPI: Chest Pain Time Seen by Provider: 10/19/17 04:38 Chief Complaint (Nursing): Chest Pain Chief Complaint (Provider): Chest pain History Per: Patient History/Exam Limitations: no limitations Current Symptoms Are (Timing): Still Present Additional History Per: Patient Additional Complaint(s): 27yo male, presents to ED for evaluation of chest pain, abdominal pain and a diffuse rash to his body. Patient was recently diagnosed with pancreatitis in July and he has been following up with the [email or web address] He denies any associated fever, chills, shortness of breath, weakness. He has no other medical complaints. Past Medical History Reviewed: Historical Data, Nursing Documentation, Vital Signs Vital Signs: Last Vital Signs Temp 98.6 F 10/19/17 04:41 Pulse 86 10/19/17 04:41 Resp 16 10/19/17 04:41 BP 124/77 10/19/17 04:41 Pulse Ox 100 10/20/17 06:28 - Medical History PMH: Asthma, Pancreatitis Denies: Chronic Kidney Disease - Surgical History Surgical History: No Surg Hx - Family History Family History: States: [place] - Immunization History Hx Tetanus Toxoid Vaccination: No Hx Influenza Vaccination: No Hx Pneumococcal Vaccination: No - Home Medications Home Medications: Ambulatory Orders Medication Instructions Recorded Pantoprazole Sodium [Protonix] 40 mg PO BID #60 tablet. 08/15/17 Ranitidine HCl [Zantac] 150 mg PO BID #14 tablet 08/20/17 - Allergies Allergies/Adverse Reactions: Allergies Allergy/AdvReac Type Severity Reaction Status Date / Time Penicillins Allergy RASH Verified 08/13/17 19:08 Review of Systems ROS Statement: Except As Marked, All Systems Reviewed And Found Negative Constitutional: Negative for: Fever, Chills Cardiovascular: Positive for: Chest Pain Respiratory: Negative for: Shortness of Breath Gastrointestinal: Negative for: Abdominal Pain Skin: Positive for: Rash Neurological: Negative for: Weakness Physical Exam - Reviewed Nursing Documentation Reviewed: Yes Vital Signs Reviewed: Yes - Physical Exam Appears: Positive for: Non-toxic, No Acute Distress Head Exam: Positive for: ATRAUMATIC Skin: Positive for: Warm, Dry, Rash (multiple erythematous pruritic plaques noted to chest and torso) Eye Exam: Positive for: Normal appearance Neck: Positive for: Normal, Supple Cardiovascular/Chest: Positive for: Regular Rate, Rhythm Respiratory: Positive for: Normal Breath Sounds. Negative for: Wheezing, Respiratory Distress Gastrointestinal/Abdominal: Positive for: Normal Exam, Soft. Negative for: Tenderness, Mass, Guarding, Rebound Extremity: Positive for: Normal ROM. Negative for: Deformity Neurologic/Psych: Positive for: Alert, Oriented. Negative for: Motor/Sensory Deficits - ECG O2 Sat by Pulse Oximetry: 100 (RA) Pulse Ox Interpretation: Normal Medical Decision Making Medical Decision Making: impression: 27yo male with chest pain Plan: -- Dr. Cates, who knows patient well from the [facility], states patient has been diagnosed with psoriasis. He will evaluate patient in ER. Progress: 510 Patient seen and evaluated by Dr. Cates who is his PCP; patient stable to follow up at the [facility] [[email or web address] He will also schedule a harbor pilot and GI appointment for follow up for the patient. Scribe Attestation: Documented by Audra Murillo, acting as a scribe for Veto Barron MD Provider Attestation: All medical record entries made by the Scribe were at my direction and personally dictated by me. I have reviewed the chart and agree that the record accurately reflects my personal performance of the history, physical exam, medical decision making, and the department course for this patient. I have also personally directed, reviewed, and agree with the discharge instructions and disposition. Disposition - Clinical Impression Clinical Impression: Non-cardiac chest pain, Psoriasis - Disposition Referrals: [facility] [Outside] Disposition: Routine/Home Disposition Time: 05:30 Condition: STABLE Instructions: Psoriasis, Chest Pain That Is Not Caused by the Heart (DC) Forms: [employer] (Cambodian)
[2017-10-19] MEDS ORDERED: Alum-Mag Hydrox-Simethicone Susp (30 mL) PO STA (05:11)
[2017-10-19] MEDS ORDERED: Alum-Mag Hydrox-Simethicone Susp (30 mL) ONE (05:25)
--- NOTE | 2017-10-19 17:14 | CARD ---
APPROVED REPORT EKG Measurement Heart [id number] <Conclusion> Normal sinus rhythm Incomplete right bundle branch block Borderline ECG
== END 2017-10-19 05:52 | disposition home or self-care (01) ==
LOC: H.ER 04:20
DX: R07.89 Other chest pain (principal); L40.9 Psoriasis, unspecified; K85.90 Acute pancreatitis without necrosis or infection, unspecified; Z88.0 Allergy status to penicillin; J45.909 Unspecified asthma, uncomplicated

== ENCOUNTER 2017-12-05 03:56 | Emergency (ER) | payer MEDICAID ==
[2017-12-05 03:57] VITALS: BMI 22.8
[2017-12-05 03:58] VITALS: BP 128/84; PULSE 81; RESP 19; TEMP 98.6; O2SAT 98
--- NOTE | 2017-12-05 04:24 | ED PDOC ---
HPI: Wound Care - HPI Time Seen by Provider: 12/05/17 04:20 Chief Complaint (Nursing): Suture/Staple Removal Chief Complaint (Provider): Suture removal History Per: Patient Exam Limitations: no limitations Additional History Per: Patient Additional Complaint(s): 27yo male, comes to ER requesting suture removal from a punch biopsy site on his lower back. He denies any pain, swelling, or drainage from the area. No other complaints. Past Medical History Reviewed: Historical Data, Nursing Documentation, Vital Signs Vital Signs: Last Vital Signs Temp 98.6 F 12/05/17 03:58 Pulse 81 12/05/17 03:58 Resp 19 12/05/17 03:58 BP 128/84 12/05/17 03:58 Pulse Ox 98 12/05/17 03:58 - Medical History PMH: Asthma, Pancreatitis Denies: Chronic Kidney Disease - Surgical History Surgical History: No Surg Hx - Family History Family History: States: [place] - Immunization History Hx Tetanus Toxoid Vaccination: No Hx Influenza Vaccination: No Hx Pneumococcal Vaccination: No - Home Medications Home Medications: Ambulatory Orders Medication Instructions Recorded Pantoprazole Sodium [Protonix] 40 mg PO BID #60 tablet. 08/15/17 Ranitidine HCl [Zantac] 150 mg PO BID #14 tablet 08/20/17 - Allergies Allergies/Adverse Reactions: Allergies Allergy/AdvReac Type Severity Reaction Status Date / Time amoxicillin Allergy RASH Verified 12/05/17 04:12 Penicillins Allergy RASH Verified 12/05/17 04:12 Review of Systems ROS Statement: Except As Marked, All Systems Reviewed And Found Negative Constitutional: Negative for: Fever, Chills Skin: Positive for: Other (suture on lower back) Physical Exam - Reviewed Nursing Documentation Reviewed: Yes Vital Signs Reviewed: Yes - Physical Exam Appears: Positive for: Non-toxic Head Exam: Positive for: NORMAL INSPECTION Skin: Positive for: Warm, Dry Back: Positive for: Other (suture noted to lower back; no redness, swelling, discharge noted. no signs of infection noted.) Neurologic/Psych: Positive for: Alert, Oriented - ECG O2 Sat by Pulse Oximetry: 98 (RA) Pulse Ox Interpretation: Normal Medical Decision Making Medical Decision Making: Impression: Suture removal Plan: -- Suture removed by provider using removal kit. Patient tolerated procedure well. Stable upon discharge home. Scribe Attestation: Documented by Audra Muirllo, acting as a scribe for Veto Barron MD. Provider Scribe Attestation: All medical record entries made by the Scribe were at my direction and personally dictated by me. I have reviewed the chart and agree that the record accurately reflects my personal performance of the history, physical exam, medical decision making, and the department course for this patient. I have also personally directed, reviewed, and agree with the discharge instructions and disposition. Disposition - Clinical Impression Clinical Impression: Removal of suture - Disposition Disposition: Routine/Home Disposition Time: 04:24 Condition: STABLE Instructions: Stitches Removal Forms: [facility] (Niuean)
== END 2017-12-05 04:27 | disposition home or self-care (01) ==
LOC: H.ER 03:56
DX: Z48.02 Encounter for removal of sutures (principal)

== ENCOUNTER 2017-12-13 13:52 | Emergency (ER) | payer MEDICAID ==
[2017-12-13 13:52] VITALS: BMI 22.8
[2017-12-13 14:13] VITALS: BP 116/65; PULSE 77; RESP 20; TEMP 98; O2SAT 98
--- NOTE | 2017-12-13 14:43 | ED PDOC ---
Lower Extremity Pain/Injury Time Seen by Provider: 12/13/17 14:00 Chief Complaint (Nursing): Lower Extremity Problem/Injury Chief Complaint (Provider): Lower Extremity Problem/Injury History Per: Patient History/Exam Limitations: no limitations Onset/Duration Of Symptoms: Hrs Current Symptoms Are (Timing): Still Present Additional Complaint(s): 27 y/o male with PMHx of asthma presents to the ED complaining of left ankle/ foot pain s/p sports injury, onset yesterday. Patient reports he was playing basketball last night when he injured his left foot/ankle causing pain and swelling. Patient reports he has been limping since injury last night. Denies taking medication for pain relief. PMD: None Provided Past Medical History Reviewed: Historical Data, Nursing Documentation, Vital Signs Vital Signs: Last Vital Signs Temp 98.0 F 12/13/17 14:11 Pulse 77 12/13/17 14:11 Resp 20 12/13/17 14:11 BP 116/65 12/13/17 14:11 Pulse Ox 98 12/13/17 14:11 - Medical History PMH: Asthma, Pancreatitis Denies: Chronic Kidney Disease - Surgical History Surgical History: No Surg Hx - Family History Family History: States: [place] - Immunization History Hx Tetanus Toxoid Vaccination: No Hx Influenza Vaccination: No Hx Pneumococcal Vaccination: No - Home Medications Home Medications: Ambulatory Orders Medication Instructions Recorded Pantoprazole Sodium [Protonix] 40 mg PO BID #60 tablet. 08/15/17 Ranitidine HCl [Zantac] 150 mg PO BID #14 tablet 08/20/17 Ibuprofen [Motrin] 600 mg PO Q6 #20 tab 12/13/17 - Allergies Allergies/Adverse Reactions: Allergies Allergy/AdvReac Type Severity Reaction Status Date / Time amoxicillin Allergy RASH Verified 12/13/17 14:11 Penicillins Allergy RASH Verified 12/13/17 14:11 Review of Systems ROS Statement: Except As Marked, All Systems Reviewed And Found Negative Musculoskeletal: Positive for: Foot Pain (left ) Physical Exam - Reviewed Nursing Documentation Reviewed: Yes Vital Signs Reviewed: Yes - Physical Exam Appears: Positive for: No Acute Distress Head Exam: Positive for: ATRAUMATIC, NORMOCEPHALIC Skin: Positive for: Normal Color, Warm, Dry Eye Exam: Positive for: Normal appearance Neck: Positive for: Normal, Painless ROM Cardiovascular/Chest: Positive for: Regular Rate, Rhythm Respiratory: Positive for: Normal Breath Sounds. Negative for: Respiratory Distress Extremity: Positive for: Other (Ecchymotic to base of the fifth and below lateral malelous. ) Neurologic/Psych: Positive for: Alert, Oriented (x3). Negative for: Motor/ Sensory Deficits - ECG O2 Sat by Pulse Oximetry: 98 (RA) Pulse Ox Interpretation: Normal Medical Decision Making Medical Decision Making: Time: 1423 Plan: -- Motrin 600 mg PO -- Ankle Left 3 Views XR -- Foot Left 3 Views XR Foot and ankle XR: NAD, as read by JOSE VERNON therapy advised Pt placed in air cast and instructed in crutch training by instrumentation and controls technician Scribe Attestation: Documented by Davey Zacarias, acting as a scribe for Florecita Gloria PA-C. Provider Scribe Attestation: All medical record entries made by the Scribe were at my direction and personally dictated by me. I have reviewed the chart and agree that the record accurately reflects my personal performance of the history, physical exam, medical decision making, and the department course for this patient. I have also personally directed, reviewed, and agree with the discharge instructions and disposition. Disposition - Clinical Impression Clinical Impression: Ankle sprain, Foot sprain - Disposition Referrals: Podiatry Clinic [Outside] Disposition Time: 15:14 Condition: STABLE Prescriptions: Ibuprofen [Motrin] 600 mg PO Q6 #20 tab Instructions: Ankle Sprain, Foot Sprain (DC) Forms: [employer] (Ivorian), [facility] ED School/Work Excuse - POA Present On Arrival: Falls Or Trauma
--- NOTE | 2017-12-13 17:40 | RAD ---
Date of service: 12/13/2017 PROCEDURE: Left Foot Radiographs. HISTORY: pain s/p twist COMPARISON: None. FINDINGS: BONES: No acute fracture or destructive bony lesion identified. JOINTS: Normal. SOFT TISSUES: Normal. OTHER FINDINGS: None. IMPRESSION: Normal left foot radiographs.
--- NOTE | 2017-12-13 17:41 | RAD ---
Date of service: 12/13/2017 PROCEDURE: Left Ankle Radiographs. HISTORY: pain s/p twist COMPARISON: None FINDINGS: BONES: No acute fracture or destructive bony lesion identified. JOINTS: Normal. No osteoarthritis. Ankle mortise maintained. Talar dome intact SOFT TISSUES: Normal. OTHER FINDINGS: None. IMPRESSION: Normal left ankle radiographs.
== END 2017-12-13 15:38 | disposition home or self-care (01) ==
LOC: H.ER 13:52
DX: S93.402A Sprain of unspecified ligament of left ankle, initial encounter (principal); S93.602A Unspecified sprain of left foot, initial encounter; X50.9XXA Other and unspecified overexertion or strenuous movements or postures, initial encounter; Y92.310 Basketball court as the place of occurrence of the external cause; Z88.0 Allergy status to penicillin

== ENCOUNTER 2018-02-17 03:31 | Emergency (ER) | payer MEDICAID ==
[2018-02-17 03:31] VITALS: BMI 22.8
--- NOTE | 2018-02-17 04:43 | ED PDOC ---
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 Patient reports he was sleeping when symptoms happened. He denies any vomiting, fever, nausea or taking any medication for pain. Patient admits to drinking today. PMD: [facility] Past Medical History Reviewed: Historical Data, Nursing Documentation, Vital Signs Vital Signs: Last Vital Signs Temp 98 F 02/17/18 03:45 Pulse 88 02/17/18 04:06 Resp 12 02/17/18 04:06 BP 129/64 02/17/18 04:06 Pulse Ox 95 02/17/18 04:06 - Medical History PMH: Asthma, Pancreatitis Denies: Chronic Kidney Disease - Surgical History Surgical History: No Surg Hx - Family History Family History: States: [place] - Social History Current smoker - smoking cessation education provided: Yes (10 cigarettes/day) Alcohol: Social Drugs: Denies - Immunization History Hx Tetanus Toxoid Vaccination: No Hx Influenza Vaccination: No Hx Pneumococcal Vaccination: No - Home Medications Home Medications: Ambulatory Orders Medication Instructions Recorded Pantoprazole Sodium [Protonix] 40 mg PO BID #60 tablet. 08/15/17 Ranitidine HCl [Zantac] 150 mg PO BID #14 tablet 08/20/17 Ibuprofen [Motrin] 600 mg PO Q6 #20 tab 12/13/17 - Allergies Allergies/Adverse Reactions: Allergies Allergy/AdvReac Type Severity Reaction Status Date / Time amoxicillin Allergy RASH Verified 02/17/18 03:45 Penicillins Allergy RASH Verified 02/17/18 03:45 Review of Systems ROS Statement: Except As Marked, All Systems Reviewed And Found Negative Constitutional: Negative for: Fever Cardiovascular: Positive for: Chest Pain Gastrointestinal: Negative for: Nausea, Vomiting Physical Exam - Reviewed Nursing Documentation Reviewed: Yes Vital Signs Reviewed: Yes - Physical Exam Appears: Positive for: Non-toxic, No Acute Distress Head Exam: Positive for: ATRAUMATIC, NORMOCEPHALIC Skin: Positive for: Normal Color, Warm, Dry Eye Exam: Positive for: Normal appearance Neck: Positive for: Normal, Painless ROM, Supple Cardiovascular/Chest: Positive for: Regular Rate, Rhythm. Negative for: Murmur Respiratory: Negative for: Normal Breath Sounds, Respiratory Distress Gastrointestinal/Abdominal: Positive for: Normal Exam, Soft. Negative for: Tenderness Extremity: Positive for: Normal ROM. Negative for: Tenderness, Pedal Edema Neurologic/Psych: Positive for: Alert, Oriented (x3) - Laboratory Results Result Diagrams: 02/17/18 04:50 02/17/18 04:50 - ECG ECG Rhythm: Positive for: Sinus Rhythm (normal), Right Bundle Branch Block (incomplete) Rate: 85 O2 Sat by Pulse Oximetry: 95 (RA) Pulse Ox Interpretation: Normal Medical Decision Making Medical Decision Makin Patient has no PE risk factors. Plan: --CBC --CMP --Alcohol Serum --Troponin I Comparing to prior EKG in September 2017, EKG has no changes. Normal sinus rhythm with incomplete right bundle branch block 0614 --Lipase --Urine drug screen 0633 Troponin results are within normal limits. Patient requesting to be evaluated by crisis because he feels depressed and drinks a lot after his 's . Labs revealed elevated lipase levels; ordered CT abd Pelvis. 0700 Patient is signed out to Dr. Keller, pending CT and crisis evaluation. Scribe Attestation: Documented by Staci Grigsby, acting as a scribe for Liv Schmitt MD. Provider Scribe Attestation: All medical record entries made by the Scribe were at my direction and personally dictated by me. I have reviewed the chart and agree that the record accurately reflects my personal performance of the history, physical exam, medical decision making, and the department course for this patient. I have also personally directed, reviewed, and agree with the discharge instructions and disposition. Disposition - Patient ED Disposition Is Patient to be Admitted: Transfer of Care - Disposition Disposition: Transfer of Care Disposition Time: 07:00 Forms: [employer] (Kazakh) Patient Signed Over To: Laverne Keller Handoff Comments: pending CT and crisis evaluation
[2018-02-17 05:17] LABS: BASO % 0.2 % (0.0-2.0); EOS # 0.2 K/uL (0.0-0.7); EOS % 1.6 % (0.0-4.0); HEMOGLOBIN 16.2 g/dL (12.0-18.0); LYMPH # 4.1 K/uL (1.0-4.3); LYMPH % 32.2 % (20.0-40.0); MEAN CELL VOLUME 89.9 fl (80.0-94.0); MEAN CORPUSCULAR HEMOGLOBIN 30.9 pg (27.0-31.0); MEAN CORPUSCULAR HGB CONC 34.4 g/dL (33.0-37.0); MEAN PLATELET VOLUME 7.4 fl (7.2-11.7); MONO % 7.5 % (0.0-10.0); NEUT # 7.5 K/uL (1.8-7.0); NEUT % 58.5 % (50.0-75.0); NRBC % 0.1 % (0.0-0.0); RBC 5.23 Mil/uL (4.40-5.90); RED CELL DISTRIBUTION WIDTH 13.3 % (11.5-14.5); WHITE BLOOD COUNT 12.8 K/uL (4.8-10.8)
[2018-02-17 05:19] LABS: ALB/GLOB RATIO 1.5 (1.0-2.1); ALBUMIN 4.3 g/dL (3.5-5.0); ALT/SGPT 33 U/L (21-72); AST/SGOT 31 U/L (17-59); BLOOD UREA NITROGEN 16 mg/dl (9-20); CALCIUM 9.4 mg/dL (8.4-10.2); GFR NON-AFRICAN AMERICAN > 60
[2018-02-17] MEDS ORDERED: Iohexol 240 (50 ml) PO ONE (07:02)
[2018-02-17 07:29] LABS: BARBITURATES, UR NEGATIVE (NEGATIVE); BENZODIAZEPINES, UR NEGATIVE (NEGATIVE); OPIATES, UR NEGATIVE (NEGATIVE); PHENCYCLIDINE, UR NEGATIVE (NEGATIVE)
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
[2018-02-17] MEDS ORDERED: Iohexol 240 (50 ml) ONE (07:42)
[2018-02-17 07:52] VITALS: TEMP 97.9
[2018-02-17] MEDS ORDERED: Sodium Chloride 0.9% 50 ML IV ONE (09:50)
[2018-02-17] MEDS ORDERED: Iohexol 300 100 ML IJ ONE (09:50)
--- NOTE | 2018-02-17 10:53 | CT ---
Date of service: 02/17/2018 PROCEDURE: CT Abdomen and Pelvis with contrast HISTORY: abd pain elevated lipase COMPARISON: None. TECHNIQUE: Contrast dose: 95 mL Omnipaque 300 Radiation dose: Total exam DLP = 357.7 mGy-cm. This CT exam was performed using one or more of the following dose reduction techniques: Automated exposure control, adjustment of the mA and/or kV according to patient size, and/or use of iterative reconstruction technique. FINDINGS: LOWER THORAX: Unremarkable. LIVER: Unremarkable. No gross lesion or ductal dilatation. GALLBLADDER AND BILE DUCTS: Unremarkable. PANCREAS: Unremarkable. No gross lesion or ductal dilatation. SPLEEN: Unremarkable. ADRENALS: Unremarkable. No mass. KIDNEYS AND URETERS: Unremarkable. No hydronephrosis. No solid mass. VASCULATURE: Unremarkable. No aortic aneurysm. BOWEL: Mild descending and sigmoid diverticulosis. Mild wall thickening of the descending and proximal sigmoid colon. No obstruction. No gross mural thickening. APPENDIX: Normal appendix. PERITONEUM: Unremarkable. No free fluid. No free air. LYMPH NODES: Unremarkable. No enlarged lymph nodes. BLADDER: Unremarkable. REPRODUCTIVE: Unremarkable. BONES: No acute fracture. OTHER FINDINGS: None. IMPRESSION: No definite CT evidence of pancreatitis. Mild wall thickening of the descending and proximal sigmoid colon which may be related to underdistention versus mild infectious/inflammatory colitis. Clinical correlation is recommended.
--- NOTE | 2018-02-17 11:28 | RAD ---
Date of service: 02/17/2018 HISTORY: cp COMPARISON: Chest radiograph dated 08/20/2017. TECHNIQUE: Chest PA and lateral FINDINGS: LUNGS: No active pulmonary disease. PLEURA: No significant pleural effusion identified. No pneumothorax apparent. CARDIOVASCULAR: Normal. OSSEOUS STRUCTURES: No significant abnormalities. VISUALIZED UPPER ABDOMEN: Normal. OTHER FINDINGS: None. IMPRESSION: No active disease.
[2018-02-17 11:29] VITALS: BP 120/46; PULSE 75; RESP 16; O2SAT 96
== END 2018-02-17 11:31 | disposition home or self-care (01) ==
LOC: H.ER 03:31
DX: R94.5 Abnormal results of liver function studies (principal)
CPT/HCPCS: 71046; 74177; 80053; 80320; 80324; 80345; 80346; 80349; 80353; 80358; 80361; 83690; 83992; 84484; 85025; 99285; Q9966; Q9967

== ENCOUNTER 2018-03-02 01:42 | Emergency (ER) | payer MEDICAID ==
[2018-03-02 01:43] VITALS: BMI 22.8
[2018-03-02 02:47] LABS: BASO % 0.3 % (0.0-2.0); EOS # 0.1 K/uL (0.0-0.7); EOS % 0.8 % (0.0-4.0); HEMOGLOBIN 16.2 g/dL (12.0-18.0); LYMPH # 1.7 K/uL (1.0-4.3); LYMPH % 19.4 % (20.0-40.0); MEAN CELL VOLUME 89.6 fl (80.0-94.0); MEAN CORPUSCULAR HGB CONC 35.8 g/dL (33.0-37.0); MEAN PLATELET VOLUME 7.3 fl (7.2-11.7); MONO # 0.4 K/uL (0.0-0.8); MONO % 4.8 % (0.0-10.0); NEUT # 6.5 K/uL (1.8-7.0); NEUT % 74.7 % (50.0-75.0); RBC 5.06 Mil/uL (4.40-5.90); RED CELL DISTRIBUTION WIDTH 13.3 % (11.5-14.5); WHITE BLOOD COUNT 8.8 K/uL (4.8-10.8)
[2018-03-02 02:58] LABS: ALB/GLOB RATIO 1.5 (1.0-2.1); ALBUMIN 4.5 g/dL (3.5-5.0); ALT/SGPT 29 U/L (21-72); AST/SGOT 38 U/L (17-59); BLOOD UREA NITROGEN 10 mg/dl (9-20); CALCIUM 9.2 mg/dL (8.4-10.2); GFR NON-AFRICAN AMERICAN > 60
[2018-03-02 03:35] LABS: URINE BILIRUBIN NEGATIVE (NEGATIVE); URINE BLOOD NEGATIVE (NEGATIVE); URINE CLARITY CLEAR (Clear); URINE COLOR STRAW (YELLOW); URINE GLUCOSE (UA) NEG (Normal); URINE LEUKOCYTE ESTERASE NEG Leu/uL (Negative); URINE PROTEIN NEGATIVE (NEGATIVE); URINE UROBILINOGEN 0.2-1.0 mg/dL (0.2-1.0)
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
[2018-03-02] MEDS ORDERED: Tdap Vaccine 0.5 ml Vial (10-64 yrs) IM ONE (03:48)
[2018-03-02 03:55] VITALS: RESP 16
[2018-03-02 04:03] LABS: BARBITURATES, UR NEGATIVE (NEGATIVE); BENZODIAZEPINES, UR NEGATIVE (NEGATIVE); OPIATES, UR NEGATIVE (NEGATIVE); PHENCYCLIDINE, UR NEGATIVE (NEGATIVE)
[2018-03-02] MEDS: Clindamycin ORAL SUSP 75 MG/5 ML PO STA ×2 (05:12→05:38)
--- NOTE | 2018-03-02 06:31 | ED PDOC ---
ED Additional Note - Date & Time of Evaluation Date of Evaluation: 03/02/18 Time of Evaluation: 06:30 - Physician Additional Note Physician Additional Note: -Patient pending bilateral knee x-rays. 06:30 -Bilateral knee x-rays show no fracture or dislocation. Patient requires no further treatment in the ED and is clinically sober for discharge. Disposition - Clinical Impression Clinical Impression: Lip laceration, Forehead laceration, Chin laceration, Alcohol abuse, Facial contusion, Facial abrasion, Abrasion of knee, bilateral - Disposition Disposition: Routine/Home Disposition Time: 06:30 Condition: STABLE Additional Instructions: Chin and forehead suture removal in 4-5 days Apply neosporin daily Prescriptions: Clindamycin [Cleocin] 300 mg PO TID #14 cap Instructions: Laceration Repair, Alcohol Abuse and Alcoholism (DC) Forms: [facility] [employer] (Lebanese)
[2018-03-02 06:41] VITALS: BP 112/72; PULSE 92; TEMP 98.4; O2SAT 98
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
--- NOTE | 2018-03-02 13:30 | RAD ---
Date of service: 03/02/2018 PROCEDURE: Bilateral Knee Radiographs. HISTORY: fall COMPARISON: None. FINDINGS: BONES: Right Knee: Normal. No fracture. Left Knee: Normal. No fracture. JOINTS: Right Knee: Normal. No osteoarthritis. Left knee: Normal. No osteoarthritis. SOFT TISSUES: Right Knee: Normal. Left Knee: Normal. JOINT EFFUSION: Right Knee: None. Left Knee: None. OTHER FINDINGS: None. IMPRESSION: Normal radiographs of the knees.
== END 2018-03-02 06:39 | disposition home or self-care (01) ==
LOC: H.ER 01:42
DX: F10.10 Alcohol abuse, uncomplicated (principal); S01.511A Laceration without foreign body of lip, initial encounter; S01.81XA Laceration without foreign body of other part of head, initial encounter; S80.211A Abrasion, right knee, initial encounter; S80.212A Abrasion, left knee, initial encounter; S00.83XA Contusion of other part of head, initial encounter; Y04.0XXA Assault by unarmed brawl or fight, initial encounter; Y92.89 Other specified places as the place of occurrence of the external cause; Z88.0 Allergy status to penicillin
CPT/HCPCS: 12011; 70450; 70486; 73562; 80053; 80320; 80324; 80345; 80346; 80349; 80353; 80358; 80361; 81003; 82948; 83992; 85025; 90471; 90715; 96372; 99285; J1630; J2060

== ENCOUNTER 2018-03-03 05:03 | Emergency (ER) | payer MEDICAID ==
[2018-03-03 05:03] VITALS: BMI 22.8
[2018-03-03 05:16] VITALS: BP 134/80; PULSE 91; RESP 18; TEMP 97.6; O2SAT 96
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
== END 2018-03-03 06:15 | disposition home or self-care (01) ==
LOC: H.ER 05:03
DX: M43.6 Torticollis (principal); Y04.0XXA Assault by unarmed brawl or fight, initial encounter; Y92.89 Other specified places as the place of occurrence of the external cause
CPT/HCPCS: 96372; 99283; J1885

== ENCOUNTER 2018-06-14 16:49 | Emergency (ER) | payer MEDICAID ==
[2018-06-14 16:49] VITALS: BMI 22.8
[2018-06-14] MEDS ORDERED: Sodium Chloride 0.9% 1,000 ML IV STA (21:11)
--- NOTE | 2018-06-14 21:14 | ED PDOC ---
HPI: Abdomen Time Seen by Provider: 06/14/18 20:59 Chief Complaint (Nursing): Abdominal Pain Chief Complaint (Provider): abdominal pain History Per: Patient History/Exam Limitations: no limitations Onset/Duration Of Symptoms: Days (2) Current Symptoms Are (Timing): Still Present Location Of Pain/Discomfort: Other (right flank) Quality Of Discomfort: "Pain" Last Bowel Movement: Days Ago (2; normal as per patient) Additional History Per: Patient Additional Complaint(s): 28 y/o male presents for evaluation of right-sided abdominal pain x 2 days. Patient states pain feels similar to when he had pancreatitis. Patient also reports sore throat x 1 week. Denies fever, nausea/vomiting, chest pain, shortness of breath, palpitations, changes in bowel movements, urinary symptoms. Past Medical History Reviewed: Historical Data, Nursing Documentation, Vital Signs Vital Signs: Last Vital Signs Temp 97.6 F 06/14/18 17:49 Pulse 73 06/14/18 17:49 Resp 17 06/14/18 17:49 BP 137/76 06/14/18 17:49 Pulse Ox 96 06/14/18 17:49 - Medical History PMH: Asthma, Pancreatitis Denies: Diabetes, Hepatitis, HIV, HTN, Chronic Kidney Disease, Seizures, Sexually Transmitted Disease - Surgical History Surgical History: No Surg Hx - Family History Family History: States: [place] - Immunization History Hx Tetanus Toxoid Vaccination: (Unk) Hx Influenza Vaccination: No Hx Pneumococcal Vaccination: No - Home Medications Home Medications: Ambulatory Orders Medication Instructions Recorded Naproxen [Naprosyn] 500 mg PO Q12 PRN #14 tablet 06/14/18 - Allergies Allergies/Adverse Reactions: Allergies Allergy/AdvReac Type Severity Reaction Status Date / Time amoxicillin Allergy RASH Verified 06/14/18 17:51 Penicillins Allergy RASH Verified 06/14/18 17:51 Review of Systems ROS Statement: Except As Marked, All Systems Reviewed And Found Negative ENT: Positive for: Throat Pain Gastrointestinal: Positive for: Abdominal Pain Physical Exam - Reviewed Nursing Documentation Reviewed: Yes Vital Signs Reviewed: Yes - Physical Exam Appears: Positive for: Well, Non-toxic, No Acute Distress Head Exam: Positive for: ATRAUMATIC, NORMAL INSPECTION, NORMOCEPHALIC Skin: Positive for: Normal Color Eye Exam: Positive for: Normal appearance ENT: Positive for: Normal ENT Inspection Cardiovascular/Chest: Positive for: Regular Rate, Rhythm Respiratory: Positive for: Normal Breath Sounds Gastrointestinal/Abdominal: Positive for: Bowel Sounds, Soft, Tenderness (right flank) Back: Positive for: Normal Inspection. Negative for: L CVA Tenderness, R CVA Tenderness Extremity: Positive for: Normal ROM Neurologic/Psych: Positive for: Alert, Oriented (x3) - Laboratory Results Result Diagrams: 06/14/18 21:25 06/14/18 21:25 - ECG O2 Sat by Pulse Oximetry: 96 - Progress ED Course And Treament: -udip -cbc -cmp -lipase -urinalysis -rapid strep -IV NS bolus EXAM: CT Abdomen and Pelvis without IV contrast CLINICAL HISTORY: Right flank pain TECHNIQUE: Axial computed tomography images of the abdomen and pelvis without intravenous contrast. 309.99 mGy-cm CONTRAST: Without COMPARISON: None provided. FINDINGS: LUNG BASES: The lung bases appear clear. No pleural effusions are seen. LIVER: Unremarkable. GALLBLADDER AND BILE DUCTS: The gallbladder appears within normal limits. No radioopaque gallstones are seen. No biliary ductal dilatation is evident. PANCREAS: Unremarkable. SPLEEN: Unremarkable. ADRENAL GLANDS: Unremarkable. KIDNEYS, URETERS, AND BLADDER: The kidneys appear within normal limits. There is no hydronephrosis or hyd roureter. No urinary calculi are seen. STOMACH AND BOWEL: Unremarkable appearance of the stomach and bowel. No evidence of bowel obstruction. No evidence suggesting enteritis or colitis. APPENDIX: No evidence of acute appendicitis on CT examination. PERITONEUM: No free fluid. No free air. LYMPH NODES: No lymphadenopathy is evident. REPRODUCTIVE: Prostatic calcifications are seen. VASCULATURE: No evidence of abdominal aortic aneurysm. BONES: No aggressive appearing osseous lesion. No acute osseous pathology evident. IMPRESSION: No acute intra-abdominal or pelvic abnormality. No urinary calculi are seen. Patient educated on findings, discharged with rx Naproxen Advised follow up PMD within 2-3 days REturn precautions given Disposition - Clinical Impression Clinical Impression: Abdominal pain, Throat pain - Patient ED Disposition Is Patient to be Admitted: No Counseled Patient/Family Regarding: Studies Performed, Diagnosis, Need For Followup - Disposition Referrals: [facility] [Outside] Disposition: Routine/Home Disposition Time: 22:21 Condition: IMPROVED Prescriptions: Naproxen [Naprosyn] 500 mg PO Q12 PRN #14 tablet PRN Reason: Pain, Moderate (4-7) Instructions: Sore Throat in Adults, Acute Abdomen (Belly Pain) Forms: [employer] (Malian)
[2018-06-14 21:36] LABS: BASO # 0.1 K/uL (0.0-0.2); BASO % 0.6 % (0.0-2.0); EOS # 0.2 K/uL (0.0-0.7); HEMOGLOBIN 16.9 g/dL (12.0-18.0); LYMPH # 2.5 K/uL (1.0-4.3); LYMPH % 26.5 % (20.0-40.0); MEAN CELL VOLUME 90.3 fl (80.0-94.0); MEAN CORPUSCULAR HEMOGLOBIN 31.1 pg (27.0-31.0); MEAN CORPUSCULAR HGB CONC 34.4 g/dL (33.0-37.0); MEAN PLATELET VOLUME 7.4 fl (7.2-11.7); MONO # 0.6 K/uL (0.0-0.8); MONO % 6.6 % (0.0-10.0); NEUT % 64.3 % (50.0-75.0); NRBC % 0.3 % (0.0-0.0); RBC 5.42 Mil/uL (4.40-5.90); RED CELL DISTRIBUTION WIDTH 13.5 % (11.5-14.5); WHITE BLOOD COUNT 9.4 K/uL (4.8-10.8)
[2018-06-14 21:41] LABS: SQUAMOUS EPITHIAL < 1 /hpf (0-5); URINE BACTERIA RARE (<OCC); URINE BILIRUBIN NEGATIVE (NEGATIVE); URINE BLOOD NEGATIVE (NEGATIVE); URINE CLARITY SLIGHTY-CLOUDY (Clear); URINE COLOR YELLOW (YELLOW); URINE GLUCOSE (UA) NEG (NEGATIVE); URINE LEUKOCYTE ESTERASE NEG Leu/uL (Negative); URINE PROTEIN NEGATIVE (NEGATIVE); URINE UROBILINOGEN 0.2-1.0 mg/dL (0.2-1.0)
[2018-06-14 21:48] LABS: ALB/GLOB RATIO 1.5 (1.0-2.1); ALBUMIN 4.6 g/dL (3.5-5.0); ALT/SGPT 33 U/L (21-72); AST/SGOT 34 U/L (17-59); BLOOD UREA NITROGEN 10 mg/dl (9-20); CALCIUM 9.4 mg/dL (8.4-10.2); GFR NON-AFRICAN AMERICAN > 60; LIPASE 107 U/L (23-300)
[2018-06-14 23:55] VITALS: BP 131/74; PULSE 70; RESP 18; TEMP 98; O2SAT 99
--- NOTE | 2018-06-15 10:58 | CT ---
Date of service: 06/14/2018 PROCEDURE: CT Abdomen and Pelvis without intravenous contrast HISTORY: right flank pain COMPARISON: CT scan of the abdomen pelvis dated 02/17/2018 TECHNIQUE: Contiguous images were obtained from the domes of the diaphragms to the upper thighs without the administration of intravenous contrast. Oral contrast was not administered. Radiation dose: Total exam DLP = 309.99 mGy-cm. This CT exam was performed using one or more of the following dose reduction techniques: Automated exposure control, adjustment of the mA and/or kV according to patient size, and/or use of iterative reconstruction technique. FINDINGS: LOWER THORAX: Unremarkable. LIVER: Unremarkable. No gross lesion or ductal dilatation. GALLBLADDER AND BILE DUCTS: Unremarkable. PANCREAS: Unremarkable. No gross lesion or ductal dilatation. SPLEEN: Unremarkable. ADRENALS: Unremarkable. No mass. KIDNEYS AND URETERS: Unremarkable. No hydronephrosis. No solid mass. VASCULATURE: Unremarkable. No aortic aneurysm. No aortic atherosclerotic calcification or mural plaque present. BOWEL: Unremarkable. No obstruction. No gross mural thickening. APPENDIX: Unremarkable. Normal appendix. PERITONEUM: Unremarkable. No free fluid. No free air. LYMPH NODES: Unremarkable. No enlarged lymph nodes. BLADDER: Unremarkable. REPRODUCTIVE: Unremarkable. BONES: No acute fracture. OTHER FINDINGS: None. IMPRESSION: No obstructive uropathy or evidence of recently passed genitourinary calculus. No acute abdominal pelvic pathology.
== END 2018-06-14 23:40 | disposition home or self-care (01) ==
LOC: H.ER 16:49
DX: R10.9 Unspecified abdominal pain (principal); J02.9 Acute pharyngitis, unspecified
CPT/HCPCS: 74176; 80053; 80320; 81003; 83690; 85025; 87070; 87430; 99283; J7030

== ENCOUNTER 2018-10-14 04:23 | Emergency (ER) | payer MEDICAID ==
[2018-10-14 04:24] VITALS: BMI 24.5
--- NOTE | 2018-10-14 04:42 | ED PDOC ---
HPI: Psych/Substance Abuse Chief Complaint (Provider): etoh History Per: Patient, EMS, Other (police) Additional Complaint(s): 28 y/o male brought in by police for evaluation of alcohol intoxication. Patient awake, agitated; admits to drinking "a lot". Patient cursing at staff and attempting to get out of bed to charge towards police. <Gosia Peguero - Last Filed: 10/14/18 05:42> <Lowell Hernandez - Last Filed: 10/14/18 20:57> Time Seen by Provider: 10/14/18 04:30 Chief Complaint (Nursing): Alcohol Ingestion Past Medical History Reviewed: Historical Data, Nursing Documentation, Vital Signs Primary Care Provider: FAMILY PROVIDER,NO - Medical History PMH: Asthma, Depression, Pancreatitis Denies: Diabetes, Hepatitis, HIV, HTN, Chronic Kidney Disease, Seizures, Sexually Transmitted Disease - Family History Family History: States: [place] - Immunization History Hx Tetanus Toxoid Vaccination: No Hx Influenza Vaccination: No Hx Pneumococcal Vaccination: No <Gosia Peguero - Last Filed: 10/14/18 05:42> Vital Signs: Last Vital Signs Temp 98 F 10/14/18 08:11 Pulse 76 10/14/18 08:11 Resp 16 10/14/18 08:11 BP 104/62 10/14/18 08:11 Pulse Ox 97 10/14/18 18:07 <Lowell Hernandez - Last Filed: 10/14/18 20:57> - Home Medications Home Medications: Ambulatory Orders Medication Instructions Recorded Docusate Sodium [Colace] 100 mg PO BID #20 capsule 09/02/18 Phenyleph/Pramoxin/Glycr/W.pet 26 gm RC DAILY 5 Days cream..g. 09/02/18 [Preparation H Cream] Polyethylene Glycol 3350 [Miralax] 17 g PO DAILY 4 Days ml 09/02/18 - Allergies Allergies/Adverse Reactions: Allergies Allergy/AdvReac Type Severity Reaction Status Date / Time amoxicillin Allergy RASH Verified 09/02/18 16:44 Penicillins Allergy RASH Verified 09/02/18 16:44 Review of Systems ROS Statement: Except As Marked, All Systems Reviewed And Found Negative Skin: Positive for: Bruising <Gosia Peguero - Last Filed: 10/14/18 05:42> Physical Exam - Reviewed Nursing Documentation Reviewed: Yes Vital Signs Reviewed: Yes - Physical Exam Appears: Positive for: Well, Non-toxic, In Acute Distress (agitated) Head Exam: Negative for: ATRAUMATIC (frontal scalp abrasion with hematoma) Skin: Positive for: Normal Color Eye Exam: Positive for: Normal appearance, EOMI, PERRL ENT: Positive for: Normal ENT Inspection Cardiovascular/Chest: Positive for: Regular Rate, Rhythm Respiratory: Positive for: Normal Breath Sounds Gastrointestinal/Abdominal: Positive for: Normal Exam Back: Positive for: Normal Inspection Extremity: Positive for: Normal ROM Neurological/Psych: Positive for: Awake, Alert, Oriented (x3) <Gosia Peguero - Last Filed: 10/14/18 05:42> - Progress ED Course And Treament: Patient agitated, yelling and cursing at staff. Patient attempting to get out stretcher and get into staff and police faces while yelling Multiple attempts to de-escalate unsuccessful Patient restrained and medicated for acute agitation/safety -accucheck -serum alcohol -CT head -[facility]af[facility] monitor 6:00 Patient sleeping, no distress; vitals stable on monitor <Gosia Peguero C - Last Filed: 10/14/18 05:42> Medical Decision Making Medical Decision Makin Patient stable on monitor Still clinically intoxicated Will endorse to Dr. Carvajal pending re-eval and clinical sobriety <Lowell Hernandez - Last Filed: 10/14/18 20:57> Disposition - Disposition Disposition Time: 06:00 Patient Signed Over To: Lowell Hernandez <Gosia Peguero - Last Filed: 10/14/18 05:42> - Patient ED Disposition Is Patient to be Admitted: Transfer of Care - Disposition Disposition: Transfer of Care Disposition Time: 07:00 Patient Signed Over To: Marge Carvajal Handoff Comments: pending clinical sobriety and re-eval <Lowell Hernandez - Last Filed: 10/14/18 20:57> - Clinical Impression Clinical Impression: Alcohol abuse, Head injury - Disposition Referrals: Alcoholics Anonymous [Outside] Condition: STABLE Instructions: Alcohol Abuse and Alcoholism (DC), Head Injury Observation (DC), Effects of Alcohol on Your Health Forms: [employer] (Bengali) Print Language: AMHARIC
[2018-10-14] MEDS ORDERED: Sodium Chloride 0.9% 1,000 ML IV STA (06:30)
--- NOTE | 2018-10-14 07:40 | ED PDOC ---
- ECG O2 Sat by Pulse Oximetry: 97 (RA) Pulse Ox Interpretation: Normal Medical Decision Making Medical Decision Making: Time: 0700 Patient endorsed to provider from Lowell Hernandez MD. Patient presents with alcohol intoxication and signs of head trauma. CT negative at the time. Patient combative and requiring medical sedation. Pending sobriety and reevaluation. Time: 0750 Alcohol level is 208. Patient awake, alert, oriented, and tolerating PO. Patient's sister present in ED to assist patient home. Return parameters discussed. Scribe Attestation: Documented by Todd Balbuena, acting as a scribe for Marge Carvajal MD. Provider Scribe Attestation: All medical record entries made by the Scribe were at my direction and personally dictated by me. I have reviewed the chart and agree that the record accurately reflects my personal performance of the history, physical exam, medical decision making, and the department course for this patient. I have also personally directed, reviewed, and agree with the discharge instructions and disposition. Disposition - Clinical Impression Clinical Impression: Alcohol abuse, Head injury - POA Present On Arrival: None - Disposition Referrals: Alcoholics Anonymous [Outside] Disposition: Routine/Home Disposition Time: 07:50 Condition: STABLE Instructions: Alcohol Abuse and Alcoholism (DC), Head Injury Observation (DC), Effects of Alcohol on Your Health Forms: [employer] ([place]) Print Language: UPPER SORBIAN
[2018-10-14 08:10] VITALS: BP 104/62; PULSE 76; RESP 16; TEMP 98
--- NOTE | 2018-10-14 09:52 | CT ---
Date of service: 10/14/2018 PROCEDURE: CT HEAD WITHOUT CONTRAST. HISTORY: etoh, head injury COMPARISON: Unenhanced head CT 02/20/2018. TECHNIQUE: Axial computed tomography images were obtained through the head/brain without intravenous contrast. Radiation dose: Total exam DLP = 1596.06 mGy-cm. This CT exam was performed using one or more of the following dose reduction techniques: Automated exposure control, adjustment of the mA and/or kV according to patient size, and/or use of iterative reconstruction technique. FINDINGS: HEMORRHAGE: No intracranial hemorrhage. BRAIN: Normal lebron-white matter differentiation and density are appreciated throughout the cerebrum and cerebellum with the brainstem appearing unremarkable as well. There is no mass effect. There is no suspicious extra-axial fluid collection and the midline brain anatomy appears diffusely unremarkable. VENTRICLES: Unremarkable. No hydrocephalus. CALVARIUM: No destructive bony lesion or displaced fracture identified including through the skullbase. PARANASAL SINUSES: Unremarkable as visualized. No significant inflammatory changes. MASTOID AIR CELLS: Unremarkable as visualized. No inflammatory changes. OTHER FINDINGS: None. IMPRESSION: Stable unremarkable unenhanced head CT as compared prior CT 03/02/2018. Concordant preliminary report from [facility], 10/14/2018, 6:31 a.m..
[2018-10-14 18:07] VITALS: O2SAT 97
== END 2018-10-14 08:13 | disposition home or self-care (01) ==
LOC: H.ER 04:23
DX: F10.129 Alcohol abuse with intoxication, unspecified (principal); S09.90XA Unspecified injury of head, initial encounter; X58.XXXA Exposure to other specified factors, initial encounter
CPT/HCPCS: 70450; 80320; 82948; 96372; 99284; J1630; J2060

== ENCOUNTER 2018-10-15 09:25 | Emergency (ER) | payer MEDICAID ==
[2018-10-15 09:41] VITALS: BP 142/89; PULSE 88; RESP 20; TEMP 98.1; O2SAT 97; BMI 22.8
--- NOTE | 2018-10-15 10:01 | ED PDOC ---
HPI: Head Injury Time Seen by Provider: 10/15/18 09:38 Chief Complaint (Nursing): Upper Extremity Problem/Injury History Per: Patient Injury Occurred (Timing): Hours Ago: (3) Onset/Duration Of Symptoms: Hrs Patient States: Fell Striking Head Severity: Mild Pain Scale Rating Of: 2 Loss Of Consciousness: Unsure Additional History Per: Patient Additional Complaint(s): Patient presenting with right sided neck pain and spasm since this morning. Patient spent last night in ED with alcohol intoxication. He was seen for head injury and had normal CT head. Patient denies any headache, chest pain, dizziness, weakness or numbness. Past Medical History Reviewed: Historical Data, Nursing Documentation, Vital Signs Vital Signs: Last Vital Signs Temp 98.1 F 10/15/18 09:27 Pulse 88 10/15/18 09:27 Resp 20 10/15/18 09:27 BP 142/89 10/15/18 09:27 Pulse Ox 97 10/15/18 09:27 Primary Care Provider: FAMILY PROVIDER,NO - Medical History PMH: Asthma, Depression, Pancreatitis Denies: Diabetes, Hepatitis, HIV, HTN, Chronic Kidney Disease, Seizures, Sexually Transmitted Disease - Surgical History Surgical History: No Surg Hx - Family History Family History: States: No Known Family Hx - Immunization History Hx Tetanus Toxoid Vaccination: No Hx Influenza Vaccination: No Hx Pneumococcal Vaccination: No - Home Medications Home Medications: Ambulatory Orders Medication Instructions Recorded Docusate Sodium [Colace] 100 mg PO BID #20 capsule 09/02/18 Phenyleph/Pramoxin/Glycr/W.pet 26 gm RC DAILY 5 Days cream..g. 09/02/18 [Preparation H Cream] Polyethylene Glycol 3350 [Miralax] 17 g PO DAILY 4 Days ml 09/02/18 - Allergies Allergies/Adverse Reactions: Allergies Allergy/AdvReac Type Severity Reaction Status Date / Time amoxicillin Allergy RASH Verified 10/15/18 09:39 Penicillins Allergy RASH Verified 10/15/18 09:39 Review of Systems ROS Statement: Except As Marked, All Systems Reviewed And Found Negative Physical Exam - Reviewed Nursing Documentation Reviewed: Yes Vital Signs Reviewed: Yes - Physical Exam Appears: Positive for: Non-toxic, No Acute Distress Head Exam: Positive for: ATRAUMATIC, NORMAL INSPECTION Skin: Positive for: Normal Color Eye Exam: Positive for: EOMI Neck: Positive for: Limited ROM Cardiovascular/Chest: Positive for: Regular Rate, Rhythm Extremity: Positive for: Normal ROM Neurological/Psych: Positive for: Awake, Alert, Oriented (x3) - ECG O2 Sat by Pulse Oximetry: 97 Medical Decision Making Medical Decision Making: Impression Neck pain Diff includes muscle spasm torticollis Plan Motrin PO Flexeril PO Disposition - Disposition
== END 2018-10-15 11:09 | disposition home or self-care (01) ==
LOC: H.ER 09:25
DX: M43.6 Torticollis (principal)